=== PATIENT | female | born 1960 | race Caucasian/White ===

== ENCOUNTER 2023-10-25 13:12 | Inpatient (IN) | payer BC, SELFPAY ==
[2023-10-25] VITALS (9 sets, daily range): BP systolic 123–164; BP diastolic 61–93; BMI 33.2
--- NOTE | 2023-10-25 08:48 | ED.GENMED ---
History of Present Illness
General
Chief Complaint: Abdominal Pain
Source: patient and spouse
Exam Limitations: none
Time Seen by Provider: 10/25/23 08:29
Nursing documentation reviewed up to this point in time: agreed with
Travel History
Have you had any contact with someone who has COVID-19?: No
Do you have any symptoms of coronavirus? Fever > 100 degrees, chills, cough, shortness of breath, sore throat, loss of taste or smell, muscle aches, or headache?: No
History of Present Illness
History of Present Illness:
63-year-old female past medical history of hypertension and gallstones also recent removal of a left-sided mandibular cyst a few months ago presenting to the emergency department today with concerns of bilateral upper abdominal discomfort off and on
over the past 3 days. Seems to be worse after eating fatty foods denies associated nausea vomiting diarrhea change in bowel movements fevers. No significant chest discomfort or shortness of breath. Has had a liquid diet over the past few months
secondary to a jaw surgery that she had at [facility] the initial symptoms that started 3 days ago occurred after her first progression of diet which included meatballs was the first time she had more solid food in over a month.
Past History
Past History
ED Past Medical History: HTN
ED Past Surgical History: Gynecological
Social History
Tobacco: Non-smoker
Personal:
Living: with family
Review of Systems
Review of Systems
Allergies reviewed?: Yes
All Other Systems: ROS reviewed and negative except as documented in HPI and ROS
Phy Exam
Physical Exam
Physical Exam:
GENERAL: Alert , in no apparent distress
EYE: pupils equal and reactive
NECK: Supple, no significant adenopathy.
ENT: o/p clr, mmm.
CARDIAC: Regular rate and rhythm .
LUNGS: Clear breath sounds bilaterally, no acute respiratory distress, no wheezes/rales/rhonchi
ABDOMEN: Soft, without focal tenderness, no r/g, no cvat
NEUROLOGICAL: Alert and oriented, no focal neuro deficits
SKIN: Warm and dry, skin intact.
MUSCULOSKELETAL: No edema, well perfused.
PSYCH: Normal and appropriate interaction.
Course
Orders/Labs/Results
Orders:
Orders
10/25/23 08:45
0.9% Sodium Chloride 1000 ml [Nss] 1,000 ml IV BOLUS
Famotidine [Pepcid] 20 mg IV NOW STA
Ondansetron Injectable [Zofran] 4 mg IV NOW STA
10/25/23 08:46
Electrocardiogram (*1) Stat
Reason for Study: Abdominal Pain
EKG- Treatment ONCE
US Abdomen Complete/Upper Urgent
Comment:
Reason For Exam: upper abd pain hx of gallstones
10/25/23 09:02
Complete Blood Count/With Diff Urgent
Comprehensive Metabolic Panel Urgent
Lipase Urgent
Urinalysis Reflex To Culture Urgent
Date Specimen was Collected: 10/25/23
Time Specimen was Collected: 08:47
Abnormal Lab Results
10/25/23
09:02
WBC 11.5 H 10^3/uL
(4.8-10.8)
MPV 11.9 H fL
(7.4-10.4)
Absolute Neuts (auto) 8.7 H 10^3/uL
(1.4-6.5)
Absolute Monos (auto) 0.8 H 10^3/uL
(0.1-0.6)
Neutrophils % 75.5 H %
(42.2-75.2)
Lymphocytes % 16.0 L %
(20.5-51.1)
BUN 20 H mg/dl
(7-17)
Glucose 132 H mg/dl
(70-99)
Total Bilirubin 2.1 H mg/dl
(0.2-1.3)
AST 130 H U/L
(14-36)
ALT 177 H U/L
(0-35)
Alkaline Phosphatase 165 H U/L
(38-126)
Urine Ketones 1+ A
(Negative)
10/25/23 09:02
10/25/23 09:02
Vital Signs
Initial and Last Documented VS:
Initial Vital Signs
Temp Pulse Resp BP Pulse Ox
99 F 123 16 142/86 98
10/25/23 08:27 10/25/23 08:27 10/25/23 08:27 10/25/23 08:27 10/25/23 08:27
Last Documented Vital Signs
Temp Pulse Resp BP Pulse Ox
99 F 94 14 129/76 95
10/25/23 08:27 10/25/23 11:30 10/25/23 08:41 10/25/23 11:00 10/25/23 11:30
MDM/Problems Addressed
MDM/Problems Addressed:
63-year-old female presenting to the emergency department today with concerns of upper abdominal discomfort that has been off and on over the past few days. Seems to be worse specifically after fatty. She has been on liquid diet for over a month
and just started to include more solid food. On arrival here heart rate was elevated but improving without specific treatment to the low 100s initial heart rate in the 120s patient in sinus rhythm EKG at a normal rate sinus no arrhythmia no signs
of ischemia. Very minimal reproducible discomfort to the upper abdomen but no significant sharp pain or focal pain. Negative Thomas's. Ultrasound showing gallstones and pancreatic cyst the patient is aware of. Heart rate mildly elevated
throughout ER stay white count 11.5 does have an elevated bilirubin level as well as LFTs and alk phos plan to admit for MRCP and further assessment. Patient does have some ongoing abdominal discomfort.
*Critical Care Note
Total Time (30-74mins, 75-104mins- exclusive of procedures): Not Applicable
ED Attending Note
-
Portions of this chart may have been created with voice recognition software.� Occasional wrong word or��sound alike� substitutions may have occurred due to the inherent limitations of voice recognition software.
Discharge Plan
Departure
Patient Disposition: Admit
Date of Disposition: 10/25/23
Time of Disposition: 12:06
Admit to: Med/Surg
Admit to doctor: Sheu
Presentation/result/management discussed w/ accepting MD/DO: Hospitalist
Patient with high blood pressure during this ER visit?: No
Condition: Good
Covid-19: Not Applicable
Discharge Problem:
Upper abdominal pain
Prescriptions:
No Action
lisinopril 10 MG tablet
30 mg PO DAILY
metoprolol tartrate 25 MG tablet
25 mg PO BID
rosuvastatin [Crestor] 10 mg Tablet
10 mg PO DAILY
Referrals:
Erica Knox MD [Family Provider] -
Interventions
Interventions:
*Risk Screen - Suicide Last Done: 10/25/23 08:27
*General Assessment Last Done: 10/25/23 08:27
*Neglect/Abuse Screening Last Done: 10/25/23 08:27
ED- Fall Risk Assessment Last Done: 10/25/23 08:48
*ED COVID-19 Vaccine History Last Done: 10/25/23 08:48
BC-Nsbiof-Oxwhtbxkgy Assessment Last Done: 10/25/23 08:48
[2023-10-25] MEDS: PEPCID 20 MG IV (08:57)
[2023-10-25] MEDS: ZOFRAN 4 MG IV (08:57)
[2023-10-25] MEDS: NSS 1000 IV ×2 (08:58→16:47)
[2023-10-25 09:14] LABS: % Basophils 0.4 % (0-2); % Eosinophils 0.7 % (0-6); % Immature Granulocytes 0.2 % (0-0.5); % Monocytes 7.2 % (1.7-9.3); % Neutrophils 75.5 % (42.2-75.2); Absolute Basophils 0.1 10^3/uL (0-0.2); Absolute Eosinophils 0.1 10^3/uL (0-0.7); Absolute Lymphocytes 1.8 10^3/uL (1.2-3.4); Absolute Monocytes 0.8 10^3/uL (0.1-0.6); Absolute Neutrophils 8.7 10^3/uL (1.4-6.5); Hemoglobin 14.2 g/dL (12.0-16.0); Mean Corp Hgb Conc. 34.6 g/dL (33.0-37.0); Mean Corpuscular Hgb 29.2 pg (27.0-31.0); Mean Corpuscular Volume 84.4 fL (81.0-99.0); Mean Platelet Volume 11.9 fL (7.4-10.4); Nucleated Red Blood Cells % 0 %; Platelet Count 256 10^3/uL (130-400); Red Blood Cell Count 4.86 10^6/uL (4.20-5.40); Red Cell Dist. Width 13.3 % (11.5-14.5); White Blood Cell Count 11.5 10^3/uL (4.8-10.8)
[2023-10-25 09:32] LABS: ALT (SGPT) 177 U/L (0-35); AST (SGOT) 130 U/L (14-36); Albumin 4.6 g/dl (3.5-5.0); Alkaline Phosphatase 165 U/L (38-126); Blood Urea Nitrogen 20 mg/dl (7-17); Calcium 9.9 mg/dl (8.4-10.2); Carbon Dioxide 22 mmol/L (22-30); Chloride 104 mmol/L (98-107); Estimated Creatinine Clearance 81 ml/min; Glucose 132 mg/dl (70-99); Potassium 3.9 mmol/L (3.5-5.1); Sodium 138 mmol/L (135-145); Total Bilirubin 2.1 mg/dl (0.2-1.3); Total Protein 7.5 g/dl (6.3-8.2); eGFR > 60.00
[2023-10-25 09:48] LABS: Lipase 56 U/L (23-300)
[2023-10-25 10:45] LABS: Urine Albumin Negative (Neg - Trace); Urine Bilirubin Negative (Negative); Urine Character Clear (Clear); Urine Color Yellow; Urine Glucose Negative (Negative); Urine Ketone 1+ (Negative); Urine Leukocyte Negative (Negative); Urine Nitrite Negative (Negative); Urine Occult Blood Negative (Negative); Urine Specific Gravity 1.015 (<1.030); Urine Urobilinogen 1+ (Neg - 1+)
--- NOTE | 2023-10-25 12:49 | HPS.HSE ---
Addendum entered and electronically signed by Dorian Miles MD 10/25/23 15:06:
Abdominal pain that can be quite severe at times
Hx of benign pancreatic cyst
Pt seen independently and agree with PA note
Lungs clear
CV reg
Abd soft, tender, Thomas's point
Imp:choledocholithiasis
abn LFT's
P:GI consult
GI intervention to be considered
routine consult General Surgery requested by Dr. Villanueva
Original Note:
Family Physician
-
Family Physician: Erica Knox MD
Chief Complaint
-
Abdominal Pain
History of Present Illness
Patient is a 63 y/o female with PMH of hypertension, hyperlipidemia, gallstones, non-alcoholic fatty liver, melanoma, and impacted tooth s/p jaw surgery and cyst removal on Sep 24 who presented to the ED complaining of epigastric pain x 3 days. She
describes post-prandial upper abdominal pain and 'spasms' which she rates 6-9/10. She has been on a clear liquid/soft foods diet following jaw surgery. Patient says she experienced significant pain and spasms after eating a soft meatball on Saturday
which eventually subsided. This morning she drank a protein shake which was followed by 6/10 pain which is what brought her to the ED this morning. She denies fever, chills, sweats, nausea, vomiting, and diarrhea. Patient gets chest CT and abdominal
MRI every 6-9 months for the past 3.5 years for history of melanoma and pancreatic cyst, last done on 09/19/2023 which reveal no gallbladder wall thickening and no inflammation of the pancreas. Ultrasound of the gallbladder today revealed
cholelithiasis but no gallbladder wall thickening.
Medical History
Past Medical History
Past Medical History: Reports Other
Additional Past Medical History:
Essential Hypertension
Hyperlipidemia
Past Surgical History: Reports Other
Additional Past Surgical History:
Breast Reduction
Right Oophorectomy
Right Lower Ext Melanoma Excision
Left Jaw Surgery
Social History
Tobacco: Non-smoker
Alcohol: None
Family History
Family History: Not pertinent
Allergies / Home Medications
Allergies reflects when Allergies were last updated in [facility].
Home Medications with original date entered in [facility]
Allergy/Medication List:
Allergies
Allergy/AdvReac Type Severity Reaction Status Date / Time
moxifloxacin [From Avelox] Allergy Itching Verified 10/25/23 08:26
Home Medications
metoprolol tartrate 25 mg tablet 25 mg PO BID Blood pressure 04/13/21
chlorhexidine gluconate 0.12 % mouthwash 15 ml buccal TID 10/25/23
ibuprofen 600 mg tablet 600 mg PO Q8H PRN mild pain 10/25/23
lisinopril 30 mg tablet 30 mg PO DAILY 10/25/23
rosuvastatin 5 mg tablet 5 mg PO DAILY 10/25/23
tavaborole 5 % topical solution with applicator 1 applic topical HS apply to right big toe nail 10/25/23
Review of Systems
-
A 12 point ROS was completed and negative except as noted: Yes
Constitutional: Denies Fever or Chills
Respiratory: Denies Cough or Trouble Breathing
Cardiac: Denies Chest Pain or Palpitations
Abdomen/GI: Reports See HPI
Physical Exam
Vital Signs
Vital Signs
Temp Pulse Resp BP Pulse Ox
99 F 110 14 123/74 99
10/25/23 08:27 10/25/23 12:00 10/25/23 08:41 10/25/23 12:00 10/25/23 12:00
Physical Exam
General: Comfortable and Conversant
HEENT: Anicteric and Moist mucous membranes
Respiratory: Clear and Non Labored Respirations
Cardiac: S1/S2 and Regular Rhythm; No Murmur
GI: Soft and Tender (Mild epigastric/RUQ without rebound or guarding)
Rectal: Deferred by Provider
Musculoskeletal: No Clubbing, No Cyanosis and No Edema
Skin: Warm and Dry
Neuro: Awake, Alert, Oriented and Nonfocal/grossly intact
Laboratory Results
-
10/25/23 09:02
10/25/23 09:
Laboratory Results
Total Bilirubin 2.1 mg/dl (0.2-1.3) H 10/25/23 09:02
AST 130 U/L (14-36) H 10/25/23 09:02
ALT 177 U/L (0-35) H 10/25/23 09:
Alkaline Phosphatase 165 U/L (38-126) H 10/25/23 09:02
Lipase 56 U/L (23-300) 10/25/23 09:02
Data Reviewed
-
Lab Data: Labs Reviewed by me
Impression/Plan
-
Abdominal Pain with Elevated LFTs, suspect choledocholithiasis
-Consult GI
-Continue NPO/IVFs
-Trend LFTs
-Start empiric Zosyn
Essential Hypertension
-Continue lisinopril and metoprolol
Hyperlipidemia
-Hold statin
DVT proph: SCDs
Code Status: Full Code
--- NOTE | 2023-10-25 13:03 | EDRN ---
Gi and hospitalist currently at the pts bedside speaking with the pt and the pts
--- NOTE | 2023-10-25 13:47 | CON.GI ---
Addendum entered and electronically signed by Abraham Villanueva MD 10/25/23 15:15:
I saw and examined the patient.
The PA's note was reviewed and I agree with the note.
Comment:
Pt is a 63 year old female with h/o melanoma, pancreatic cyst (< 1 cm cysts under MRI surveillance), gallstones,�HTN, hypercholesterolemia with recent mandible cyst with drainage, drain placement, with limited diet and restricted mouth opening (DrJuanita
Calvin at [facility]) p/w abdominal pain and found to have elevated LFT. � Had RUQ/epigastric abdo pain few days ago after eating meatball.� Pain recurred this AM and came to ER. On admission noted with� bili 2.1, AST 130, alt 177, alk phos 165 and
lipase 56 with normal LFT's in June. � Pt had MRI in 09/11 stable sub-centimeter panc cyst, hepatic steatosis, cholelithiasis, no GBWT no duct dilation. 09/19/23 CT chest-no mets in chest, pulm nodule. Pt also admits to [facility] for
last month
Impression / Rec:
1. Abdo pain, elevated LFT - moderate suspicion for underlying choledocholithiasis. RUQ US here showed cholelithiasis with CBD ~4 mm. Bili is 2 with elev alk phos. Discussed MRI/MRCP vs EUS +/- ERCP today, however given that we weren't able to
communicate/obtain clearance from her oral surgeon, will opt for MRI/MRCP today.
Original Note:
Consultation
-
Date/Time Consultation Requested: 10/25/23 1230
Date/Time Consultation Performed: 10/25/23 1300
Requesting Provider: Annelise Turner PA-C
Performing Provider: WILD Anaya, Abraham Villanueva MD
Reason for Consultation: abdominal pain, increased LFT's
Medical History
Chief Complaint / HPI
Chief Complaint: abdominal pain
History of Present Illness:
Pt is a 63yo presents with hx melanoma, pancreatic cyst follow with Dr. Galvan at [facility], gallstones, HTN, hypercholesterolemia with recent mandible cyst with drainage, drain placement, with limited diet and restricted mouth opening with Dr. Simpson
at [facility]. She has had wt loss of 15lb since mid September and admits to eating mashed potatoes and meatball on Saturday with increased abdominal pain. She took clear diet then just liquids with improvement but recurrent pain after protein shake
10/24. On admission noted with bili 2.1, AST 130, alt 177, alk phos 165 and lipase 56 with normal LFT's in June.
Pt denies nausea, vomiting, diarrhea, constipation, but some slightly dark urine and light colored stools. Pt had MRI in 09/19/23 - stable sub CM panc cyst in keeping with indolent lesion on epithelial origin, hepatic steatosis,
cholelithiasis, no GBWT no duct dilation. 09/19/23 CT chest-no mets in chest, pulm nodule.
Past Medical History
Past Medical History: Cancer (melanoma), HTN, Hypercholesterolemia and Other (pancreatic cyst )
Social History
Tobacco: Non-Smoker
Alcohol: None
Drug: None
Personal:
Living: With Family
Employment: Retired
Family History
Family History: Reviewed & Not Pertinent
Allergies / Home Medications
Allergy/AdvReac Type Severity Reaction Status Date / Time
moxifloxacin [From Avelox] Allergy Itching Verified 10/25/23 08:26
Medication Instructions Recorded
metoprolol tartrate 25 mg tablet 25 mg PO BID Blood pressure 04/13/21
chlorhexidine gluconate 0.12 % 15 ml buccal TID 10/25/23
mouthwash
ibuprofen 600 mg tablet 600 mg PO Q8H PRN mild pain 10/25/23
lisinopril 30 mg tablet 30 mg PO DAILY 10/25/23
rosuvastatin 5 mg tablet 5 mg PO DAILY 10/25/23
tavaborole 5 % topical solution 1 applic topical HS apply to right 10/25/23
with applicator big toe nail
Review of Systems
-
History Source: Patient
Constitutional: Reports Weight Loss ( 15 lbs since September )
EENT: Reports No Symptoms
Respiratory: Reports No Symptoms
Cardiac: Reports No Symptoms
Abdomen/GI: Reports Abdominal Pain
: Reports Dark Urine (slightly dark )
Musculoskeletal: Reports No Symptoms
Skin: Reports No Symptoms
Neurological: Reports Weakness
Endocrine: Reports No Symptoms
Hematologic/Lymphatic: Reports No Symptoms
Vital Signs
Temp Pulse Resp BP Pulse Ox
99 F 109 14 153/84 99
10/25/23 08:27 10/25/23 13:15 10/25/23 08:41 10/25/23 13:00 10/25/23 13:15
Physical Exam
Exam
General: Well Developed, Well Nourished and No Apparent Distress
HEENT: Other (visible rubber bands in mouth b/l but able to open mouth 1/2 way)
Respiratory: Clear
Cardiac: Regular Rhythm
GI: Soft, Non Distended and Tender (mild )
Genito-urinary: No Costovertebral Tender
Musculoskeletal: No Clubbing and No Cyanosis
Skin: Warm and Dry
Neuro: Awake, Alert and AO x 3
Psych: Calm
Results
WBC 11.5 10^3/uL (4.8-10.8) H 10/25/23 09:02
Hgb 14.2 g/dL (12.0-16.0) 10/25/23 09:02
Hct 41.0 % (37.0-47.0) 10/25/23 09:02
MCV 84.4 fL (81.0-99.0) 10/25/23 09:02
Plt Count 256 10^3/uL (130-400) 10/25/23 09:02
Absolute Neuts (auto) 8.7 10^3/uL (1.4-6.5) H 10/25/23 09:02
Sodium 138 mmol/L (135-145) 10/25/23 09:02
Potassium 3.9 mmol/L (3.5-5.1) 10/25/23 09:02
Chloride 104 mmol/L (98-107) 10/25/23 09:02
Carbon Dioxide 22 mmol/L (22-30) 10/25/23 09:02
BUN 20 mg/dl (7-17) H 10/25/23 09:02
Creatinine 0.9 mg/dL (0.6-1.0) 10/25/23 09:
Calcium 9.9 mg/dl (8.4-10.2) 10/25/23 09:02
Total Bilirubin 2.1 mg/dl (0.2-1.3) H 10/25/23 09:02
AST 130 U/L (14-36) H 10/25/23 09:02
ALT 177 U/L (0-35) H 10/25/23 09:02
Alkaline Phosphatase 165 U/L (38-126) H 10/25/23 09:02
Lipase 56 U/L (23-300) 10/25/23 09:02
Diagnostic Image Results:
10/25/23 US Abdomen Complete/Upper Cholelithiasis 9 mm cystic mass in the anterior body of the pancreas CBD 4.5 mm, cholelithiasis normal liver, spleen
MRI abd 09/19/23 - stable sub CM panc cyst in keeping with indolent lesion on epithelial origin, hepatic steatosis, cholelithiasis, no GBWT no duct dilation.
09/19/23 CT chest-no mets in chest, pulm nodule
Assessment / Plan
-
Pt is a 63yo presents with hx melanoma, pancreatic cyst follow with Dr. Galvan at [facility], gallstones, HTN, hypercholesterolemia with recent mandible cyst with drainage, drain placement, with limited diet and restricted mouth opening with Dr. Simpson
at [facility]. She has had wt loss of 15lb since mid September and admits to eating mashed potatoes and meatball on Saturday with increased abdominal pain. She took clear diet then just liquids with improvement but recurrent pain after protein shake
10/24. On admission noted with bili 2.1, AST 130, alt 177, alk phos 165 and lipase 56 with normal LFT's in June. Pt had MRI in 09/19/23 - stable sub CM panc cyst in keeping with indolent lesion on epithelial origin, hepatic steatosis,
cholelithiasis, no GBWT no duct dilation. 09/19/23 CT chest-no mets in chest, pulm nodule. Pt also admits to [facility] Motrin for last month
10/25/23 US Abdomen Complete/Upper Cholelithiasis 9 mm cystic mass in the anterior body of the pancreas CBD 4.5 mm, cholelithiasis normal liver, spleen
-epigastric abdominal pain
-elevated LFT's
-recent wt loss
-recent mandible cyst with drainage and restricted mouth
-frequent Motrin use
other medical problems:
-melanoma
-hx panc cyst
-HTN
-hypercholesterolemia
PLAN:
reviewed with Dr. Villanueva and patient
concern for CBD stone vs other (PUD in differential but less likely with LFT elevation) vs other
Ultrasound as noted
trend LFT's, monitor pain
reviewed option of MRI and if stone + ERCP Saturday vs EUS +/- ERCP attempt today
pt with multiple concerned with jaw restriction with anesthesia, positioning etc
Dr. Villanueva attempted to contact oral surgery Dr. Simpson [phone] without success-- pt will cont to call MD to review prior to procedure
cont NPO
if not completing EUS today will need to order MRI
cont to follow OP with panc cyst clinic at [facility]
-
-
Thank you for consultation and allowing me to participate in the patient's care. Please call the machine long goods helper GI physician during the after hours with any questions or concerns.
--- NOTE | 2023-10-25 14:13 | EDRN ---
the pt is resting in the stretcher in the lowest position, side rails up x1, HOB elevated, call onofre within reach, no s/s of distress, no c/o abdominal pain currently, no c/o N/V/D, VS WNL, DAVID in the 's, 98% on RA, awaiting for a bed for the pt,
will continue to monitor the pt closely
--- NOTE | 2023-10-25 14:40 | EDRN ---
this RN called the receiving unit and notified them that paper report was going to be tubed up
--- NOTE | 2023-10-25 16:19 | CON.GS ---
Addendum entered and electronically signed by Pradeep Mccauley MD 10/25/23 17:20:
I saw and examined the patient independently.
The [employer]'s note was reviewed and I agree with the note, assessment and plan except where noted below.
Comment: This is a 63-year-old female with a history of ovarian cyst status post laparoscopic right nephrectomy, hypertension, pancreatic cyst under surveillance, melanoma and recently oral surgery at [facility] for mandibular cyst with impacted tooth
roughly 1 month ago. She presents to our ED with severe postprandial epigastric and right upper quadrant pain with known history of gallstones. She has had multiple attacks fairly recently that all subsided however had 1 attack today that was
particularly severe and prompted her visit to see us today. Currently however her pain has resolved. She is not tender to palpation and has only a mild leukocytosis likely secondary to hemoconcentration. She does have mildly elevated LFTs
concerning for possible choledocholithiasis versus a passed stone. The patient denies Fever, Chest Pain, Shortness Of Breath, Nausea, Vomiting, changes in urinary and bowel habits, unintentional weight loss, jaundice, icterus, acolic stools. Her
ultrasound is positive for gallstones but no stigmata of cholecystitis.
Biliary colic +/- choledocholithiasis versus less likely early acute cholecystitis.
Patient would certainly benefit from cholecystectomy however given recent oral surgery the main question is how much manipulation of the jaw is acceptable. Will reach out to Dr. Galvan for input.
Agree with GI, MRI reasonable. If negative for choledocholithiasis would likely pursue an outpatient laparoscopic cholecystectomy once cleared from OMFS.
Trend LFTs.
Reasonable to start antibiotics for now.
Patient agreeable to plan above.
General surgery will follow.
I spent roughly 60 minutes in total for the care of this patient today including direct patient care and counseling, reviewing labs, imaging, coordination of care, as well as documentation.
Original Note:
Consultation
-
Date/Time Consultation Requested: 10/25/23 [id number]
Requesting Provider: Jd
Medical History
-
Chief Complaint: epigastric and RUQ abdominal pain
History of Present Illness:
This is a 63 yo female with a h/o ovarian cyst with laparoscopic right oophorectomy, HTN, pancreatic cyst on surveillance (stable on MRI 09/19/2023), melanoma and recent oral surgery at [facility] for mandibular cyst with impacted tooth (Dr. Galvan) one
month ago who presents with recurrent post prandial epigastric and RUQ pain. She has a history of known gallstones and notes that over the past years, she has had several episodes of RUQ and epigastric pain after eating although these episodes are
usually short lived and mild. She has been on a liquid/soft diet since her recent oral surgery with jaw banded together and has lost about 15 pounds. 3 days ago, she ate a mashed up a meatball with some mashed potatoes and developed severe RUQ and
epigastric pain. She notes that the pain was more severe and longer in duration than prior episodes. The following day, she kept to clear liquids and didn't not have recurrence of pain. Today, as she was feeling better, she drank a protein shake and
notes return of symptoms. She denies nausea or vomiting. She denies bowel changes/acholic stools. She denies jaundice or scleral icterus. She does note her urine has been darker. She reports that she still feels a little tight across her epigastric
area but is nontender on exam.
Past Medical History
Past Medical History: Cancer (melanoma with excision), HTN, Hypercholesterolemia and Other (pancreatic cyst on surveillance)
Past Surgical History: Gynecological (lap right oophorectomy in her 20's)
Social History
Tobacco: Non-Smoker
Alcohol: None
Family History
Family History: Reviewed & Not Pertinent
Allergies / Home Medications
Allergy/AdvReac Type Severity Reaction Status Date / Time
moxifloxacin [From Avelox] Allergy Itching Verified 10/25/23 08:26
Medication Instructions Recorded Confirmed Type
metoprolol tartrate 25 mg tablet 25 mg PO BID Blood pressure 04/13/21 10/25/23 History
chlorhexidine gluconate 0.12 % 15 ml buccal TID 10/25/23 10/25/23 History
mouthwash
ibuprofen 600 mg tablet 600 mg PO Q8H PRN mild pain 10/25/23 10/25/23 History
lisinopril 30 mg tablet 30 mg PO DAILY 10/25/23 10/25/23 History
rosuvastatin 5 mg tablet 5 mg PO DAILY 10/25/23 10/25/23 History
tavaborole 5 % topical solution 1 applic topical HS apply to right 10/25/23 10/25/23 History
with applicator big toe nail
Review of Systems
-
History Source: Patient
All other systems: Negative unless noted
A 10 point review of systems was completed, and was negative except as per HPI.
Physical Exam
Vital Signs
Temp Pulse Resp BP Pulse Ox
99 F 100 14 153/84 96
10/25/23 08:27 10/25/23 14:00 10/25/23 08:41 10/25/23 13:00 10/25/23 14:00
10/24/23 10/25/23 10/26/23
06:59 06:59 06:59
Actual Weight 99.1 kg
Body Mass Index (BMI) 33.2
Lab Results
10/25/23 09:02
10/25/23 09:02
WBC 11.5 10^3/uL (4.8-10.8) H 10/25/23 09:02
Hgb 14.2 g/dL (12.0-16.0) 10/25/23 09:02
Hct 41.0 % (37.0-47.0) 10/25/23 09:02
Plt Count 256 10^3/uL (130-400) 10/25/23 09:02
Abs Immat Gran (auto) 0.0 10^3/uL (0-0.05) 10/25/23 09:02
Neutrophils % 75.5 % (42.2-75.2) H 10/25/23 09:02
Physical Exam
General: Well Developed, Well Nourished and No Apparent Distress
HEENT: Moist Mucous Membranes; Negative Scleral Icterus
Respiratory: Non Labored Respirations
GI: Soft, Non Tender and Non Distended
Skin: Warm and Dry
Neuro: Awake, Alert and AO x 3
Psych: Calm
Data Reviewed
-
Ultrasound: Image Personally Visualized and interpreted, Report Reviewed by me, Discussed with Physician and Discussed with Patient
Labs: Labs Reviewed by me, Discussed with Physician and Discussed with Patient
Assessment / Plan
-
This is a 63 yo female with h/o ovarian cyst with laparoscopic right oophorectomy, HTN, pancreatic cyst on surveillance (stable on MRI 09/19/2023), melanoma and recent oral surgery one month ago at [facility] for mandibular cyst with impacted tooth (
[facility]) who presents with biliary colic with recurrent post prandial epigastric and RUQ pain. She notes severe pain which started 3 days ago and resolved with dietary restrictions but returned after drinking a protein shake this morning. Pain
improved since presentation and abd non-tender on exam. Cholelithiasis on US without evidence cholecystitis. Mild leukocytosis without fevers. LFT's elevated with bilirubin of 2.1.
GI following with recommendation for MRI to evaluate for choledocholithiasis.
Trending LFT's
Would recommend nonurgent laparoscopic cholecystectomy. Ideally, would do later this admission, but may need to scheduled as an outpatient in follow up as her recent jaw surgery may be prohibitive to intubation for general anesthesia. She has placed
a call to her OMFS to discuss.
Continue clear liquids and follow for MRI findings
[2023-10-25] MEDS: TYLENOL 650 MG PO (16:42)
[2023-10-25] MEDS: ZOSYN 50 IV ×2 (16:48→22:16)
--- NOTE | 2023-10-25 17:00 | PTCARENOTE ---
1640 Pt arrived from ER via stretcher, denies acute discomfort. Alert and oriented x 3. Vs stable, pulse ox 98% on room air. Noted orders as per MD. Explain to pt allowed clear liquids,continue to monitor closely.
[2023-10-25] MEDS: LOPRESSOR 25 MG PO (20:03)
[2023-10-26] MEDS: NSS 1000 IV ×2 (01:36→13:09)
[2023-10-26] MEDS: ZOSYN 50 IV ×2 (03:13→11:02)
[2023-10-26 06:19] LABS: Hematocrit 36.5 % (37.0-47.0); Hemoglobin 12.2 g/dL (12.0-16.0); Mean Corp Hgb Conc. 33.4 g/dL (33.0-37.0); Mean Corpuscular Hgb 29.1 pg (27.0-31.0); Mean Corpuscular Volume 87.1 fL (81.0-99.0); Platelet Count 195 10^3/uL (130-400); Red Blood Cell Count 4.19 10^6/uL (4.20-5.40); Red Cell Dist. Width 13.2 % (11.5-14.5); White Blood Cell Count 5.5 10^3/uL (4.8-10.8)
[2023-10-26 06:40] LABS: ALT (SGPT) 171 U/L (0-35); AST (SGOT) 85 U/L (14-36); Albumin 3.6 g/dl (3.5-5.0); Alkaline Phosphatase 130 U/L (38-126); Blood Urea Nitrogen 9 mg/dl (7-17); Calcium 8.8 mg/dl (8.4-10.2); Carbon Dioxide 25 mmol/L (22-30); Chloride 110 mmol/L (98-107); Estimated Creatinine Clearance 81 ml/min; Glucose 120 mg/dl (70-99); Potassium 4.5 mmol/L (3.5-5.1); Sodium 139 mmol/L (135-145); Total Bilirubin 1.2 mg/dl (0.2-1.3); Total Protein 6.1 g/dl (6.3-8.2); eGFR > 60.00
[2023-10-26 07:00] VITALS: BP 146/85
[2023-10-26] MEDS: ZESTRIL 30 MG PO (11:02)
[2023-10-26] MEDS: LOPRESSOR 25 MG PO ×2 (11:02→19:32)
--- NOTE | 2023-10-26 12:45 | W.PN.GS2 ---
Addendum entered and electronically signed by Franky Talamantes MD 10/27/23 10:27:
Patient seen and examined on 10/25 with ENV[facility]ONMENT[facility] HE[facility] AND SAFETY MANAGER. Agree with assessment plan as documented below.
No complaints of abdominal pain. Tolerating clears. No fevers.
Gen: NAD
Abd: soft, NT/ND, non-peritoneal, negative Thomas's sign
-- Plan for outpatient cholecystectomy
-- MRCP without signs of choledocho
-- OK for DC from surgical perspective, outpatient follow-up with Dr. Mccauley
Original Note:
Today's Communication / Plan
-
Dispo planning
Assessment / Plan
-
63 yo female with recent jaw surgery at [facility] with OMFS who is presenting with biliary colic and rise in LFT's/WBC's. Labs normalizing today. Resolution of pain. AFVSS. Tolerating CLD. MRI with cholelithiasis without cholecystitis, probable small
stones in cystic duct but no CBD stones noted.
--GI following with us
--Ok to resume home diet of full liquids with supplements (low fat)
--Recommend lap cholecystectomy as an outpatient once cleared for OMFS for manipulation of the jaw for intubation. She has follow up appointment with Dr. Galvan on November 20
--Ok for d/c from surgical standpoint if tolerating diet without recurrence of pain
Subjective Data
-
Date of Service: October 26, 2023
Patient seen and examined at bedside with Dr. Talamantes. Denies n/v. Tolerating CLD. Denies pain.
Objective Data
-
Intake and Output
10/25/23 10/26/23 10/27/23
06:59 06:59 07:59
Intake Total 2530 / 2530
Balance 2530 / 2530
Intake:
Oral fluids 300 / 300
IV fluids (Total) 2179 / 2179
IV piggybacks 50 / 50
Other:
Number of approximated MODERATE 3
amounts of urine
Vital Signs
Temp Pulse Resp BP Pulse Ox
98.1 F 87 16 146/85 99
10/26/23 07:00 10/26/23 07:00 10/26/23 07:00 10/26/23 07:00 10/26/23 07:00
Lab Results
10/26/23 05:17
10/26/23 05:17
Calcium 8.8 mg/dl (8.4-10.2) 10/26/23 05:17
Total Bilirubin 1.2 mg/dl (0.2-1.3) 10/26/23 05:17
AST 85 U/L (14-36) H 10/26/23 05:17
ALT 171 U/L (0-35) H 10/26/23 05:17
Alkaline Phosphatase 130 U/L (38-126) H 10/26/23 05:17
Total Protein 6.1 g/dl (6.3-8.2) L 10/26/23 05:17
Albumin 3.6 g/dl (3.5-5.0) 10/26/23 05:17
Physical Exam
-
NAD
ABD soft, NT, ND
[2023-10-26] MEDS: NSS IV (13:15)
--- NOTE | 2023-10-26 13:27 | W.PN.GI.CBS2 ---
Today's Communication / Plan
-
GI s/o
Assessment / Plan
-
Pt is a 63yo presents with hx melanoma, pancreatic cyst follow with Dr. Galvan at [facility], gallstones, HTN, hypercholesterolemia with recent mandible cyst with drainage, drain placement, with limited diet and restricted mouth opening with Dr. Simpson
at [facility]. She has had wt loss of 15lb since mid September and admits to eating mashed potatoes and meatball on Saturday with increased abdominal pain. She took clear diet then just liquids with improvement but recurrent pain after protein shake
10/24. On admission noted with bili 2.1, AST 130, alt 177, alk phos 165 and lipase 56 with normal LFT's in June. Pt had MRI in 09/19/23 - stable sub CM panc cyst in keeping with indolent lesion on epithelial origin, hepatic steatosis,
cholelithiasis, no GBWT no duct dilation. 09/19/23 CT chest-no mets in chest, pulm nodule. Pt also admits to RTC Motrin for last month
Abdo pain is improved. LFT is also improved. MRCP done, which showed stones in cystic duct, normal CBD w/o choledocholithiasis. Surgical mx at this point. GI will s/o.
Total Time Spent with Patient (in minutes): 35
Subjective
Subjective
Date of Service: October 26, 2023
pain improved.
Objective
Data Reviewed
Laboratory Data:
Laboratory Results
10/26/23 05:17
10/26/23 05:17
Laboratory Results
Total Bilirubin 1.2 mg/dl (0.2-1.3) 10/26/23 05:17
AST 85 U/L (14-36) H 10/26/23 05:17
ALT 171 U/L (0-35) H 10/26/23 05:17
Alkaline Phosphatase 130 U/L (38-126) H 10/26/23 05:17
Lipase 56 U/L (23-300) 10/25/23 09:02
Vital Signs and I&O:
Vital Signs
Temp Pulse Resp BP Pulse Ox
98.1 F 87 16 146/85 99
10/26/23 07:00 10/26/23 07:00 10/26/23 07:00 10/26/23 07:00 10/26/23 07:00
I&O
10/25/23 10/26/23 10/27/23
06:59 06:59 07:59
Intake Total 2530 / 2530
Balance 2530 / 2530
[2023-10-26 15:00] VITALS: BP 111/55
--- NOTE | 2023-10-26 16:11 | CM ---
IA completed with pt's ; pt off unit.
Pt is a 63yr old female admitted with abdominal pain and elevated LFTs. Pt found with stones in cystic duct, normal CBD w/o choledocholithiasis.
At baseline, pt and live in a 2 story home with 2 steps to enter.
Pt is independent at baseline and has no hx/current use of DME/SNF/VN
PCP; Erica Knox
Pharm; Mani Khalil
PLAN; dc to home with no needs
--- NOTE | 2023-10-26 16:31 | W.PN.HOSP.TC ---
Today's Communication/Plan
-
dc IVF
prn Ativan
recheck labs in AM
if continues to improve, will dc for pt to schedule eval with Gen Surg and then schedule for cholecystectomy once jaw issue resolved
Assessment / Plan
Assessment / Plan
Abdominal Pain with Elevated LFTs, suspected choledocholithiasis
-Consult GI/Gen Surg
-now on full liquids
-Trend LFTs
Bili 2.1-->1.2
AST 130-->85
ALT 177-->171
Alk Phos 165-->130
-Started empiric Zosyn with elevated WBC, now normalized, will stop
MRCP; Cholelithiasis as well as probable small stones within the cystic duct without overt MR evidence for acute cholecystitis. If there is high clinical concern, consider further evaluation with dedicated HIDA scan.
Essential Hypertension
-Continue lisinopril and metoprolol
Mandible cyst related to unknown impacted molar, underwent drain placement and has decreased mouth opening. Plan is to allow this to heal prior to undergoing cholecystectomy
Hyperlipidemia
-Hold statin
DVT proph: SCDs
Code Status: Full Code
Anticipated Discharge: Within 24 hours
Subjective/Interval History
-
Date of Service: October 26, 2023
Most concerned that did not sleep last night and would like Ativan tonight to help her sleep
Objective Data
-
Labs:
Laboratory Results
10/26/23
05:17
WBC 5.5
Hgb 12.2
Hct 36.5 L
Plt Count 195 D
Sodium 139
Potassium 4.5
Chloride 110 H
Carbon Dioxide 25
BUN 9
Creatinine 0.9
Glucose 120 H
Calcium 8.8
Total Bilirubin 1.2
AST 85 H
ALT 171 H
Alkaline Phosphatase 130 H
Vital Signs:
Vital Signs
Temp Pulse Resp BP Pulse Ox
98.1 F 87 16 146/85 99
10/26/23 07:00 10/26/23 07:00 10/26/23 07:00 10/26/23 07:00 10/26/23 07:00
I&O
10/25/23 10/26/23 10/27/23
06:59 06:59 07:59
Intake Total 0 / 2529
Balance 0 / 0
Review of Systems
-
History Source: Patient and Physician (reviewed with Dr. Villanueva)
Constitutional: Denies Fever
Respiratory: Reports No Symptoms
Cardiac: Reports No Symptoms
Abdomen/GI: Reports Abdominal Pain (has improved)
Musculoskeletal: Reports No Symptoms
Neuro: Reports No Symptoms
Physical Exam
-
General: Well Developed, Well Nourished and No Apparent Distress
HEENT: Normocephalic and Moist Mucous Membranes
Respiratory: Clear to Auscultation; Negative Wheezes, Rales or Rhonchi
Cardiac: Regular Rhythm and S1/S2
GI: Soft, Nontender, Nondistended and Normal Bowel Sounds
Musculoskeletal: No Clubbing, No Cyanosis and No Edema
Neuro: Awake, Alert and Oriented
[2023-10-26] MEDS: ZOSYN IV (17:04)
[2023-10-26 23:49] VITALS: BP 131/75
[2023-10-27 06:15] LABS: % Basophils 0.7 % (0-2); % Immature Granulocytes 0.4 % (0-0.5); % Monocytes 9.6 % (1.7-9.3); % Neutrophils 54.3 % (42.2-75.2); Absolute Eosinophils 0.2 10^3/uL (0-0.7); Absolute Lymphocytes 1.8 10^3/uL (1.2-3.4); Absolute Monocytes 0.5 10^3/uL (0.1-0.6); Absolute Neutrophils 3.1 10^3/uL (1.4-6.5); Hematocrit 36.8 % (37.0-47.0); Hemoglobin 12.3 g/dL (12.0-16.0); Mean Corp Hgb Conc. 33.4 g/dL (33.0-37.0); Mean Corpuscular Volume 86.8 fL (81.0-99.0); Nucleated Red Blood Cells % 0 %; Platelet Count 193 10^3/uL (130-400); Red Blood Cell Count 4.24 10^6/uL (4.20-5.40); Red Cell Dist. Width 13.5 % (11.5-14.5); White Blood Cell Count 5.7 10^3/uL (4.8-10.8)
[2023-10-27 06:49] LABS: ALT (SGPT) 114 U/L (0-35); AST (SGOT) 41 U/L (14-36); Albumin 3.4 g/dl (3.5-5.0); Alkaline Phosphatase 104 U/L (38-126); Blood Urea Nitrogen 4 mg/dl (7-17); Carbon Dioxide 29 mmol/L (22-30); Chloride 108 mmol/L (98-107); Estimated Creatinine Clearance 104 ml/min; Glucose 133 mg/dl (70-99); Potassium 4.1 mmol/L (3.5-5.1); Sodium 142 mmol/L (135-145); Total Bilirubin 0.6 mg/dl (0.2-1.3); Total Protein 5.9 g/dl (6.3-8.2); eGFR > 60.00
[2023-10-27 07:00] VITALS: BP 110/73
[2023-10-27] MEDS: LOPRESSOR 25 MG PO (08:15)
[2023-10-27] MEDS: ZESTRIL 30 MG PO (08:15)
--- NOTE | 2023-10-27 10:28 | W.PN.HOSP.TC ---
Today's Communication/Plan
-
dc today
Assessment / Plan
Assessment / Plan
Abdominal Pain with Elevated LFTs, suspected choledocholithiasis
-Consult GI/Gen Surg
-now on full liquids (baseline diet because of dental issues)
-Trend LFTs
Bili 2.1-->1.2-->0.6
AST 130-->85-->41
ALT 177-->171-->114
Alk Phos 165-->130-->104
-Started empiric Zosyn with elevated WBC, now normalized, will stop and dc on oral Augmentin x 4 days, as per Dr. Talamantes
MRCP; Cholelithiasis as well as probable small stones within the cystic duct without overt MR evidence for acute cholecystitis. If there is high clinical concern, consider further evaluation with dedicated HIDA scan.
Essential Hypertension
-Continue lisinopril and metoprolol
Mandible cyst related to unknown impacted molar, underwent drain placement and has decreased mouth opening. Plan is to allow this to heal prior to undergoing cholecystectomy
Hyperlipidemia
-Hold statin
DVT proph: SCDs
Code Status: Full Code
dc now
follow up with Dr. Simpson, oral surgery at [facility] with appt scheduled November 21, will need follow up with Dr. Pradeep Mccauley once cleared by oral surgery
More than 30 minutes spent in discharge including
Final examination of the patient
Summarizing hospital stay
Instructions for continuing care to all relevant caregivers
Preparation of discharge records, prescriptions, and referral forms
Total time spent (in minutes): 45
Anticipated Discharge: Today
Subjective/Interval History
-
Date of Service: October 27, 2023
generally feels better
Objective Data
-
Labs:
Laboratory Results
10/27/23
05:27
WBC 5.7
Hgb 12.3
Hct 36.8 L
Plt Count 193
Sodium 142
Potassium 4.1
Chloride 108 H
Carbon Dioxide 29
BUN 4 L
Creatinine 0.7
Glucose 133 H
Calcium 9.0
Total Bilirubin 0.6
AST 41 H
ALT 114 H
Alkaline Phosphatase 104
Vital Signs:
Vital Signs
Temp Pulse Resp BP Pulse Ox
98.8 F 75 16 110/73 97
10/27/23 07:00 10/27/23 07:00 10/27/23 07:00 10/27/23 07:00 10/27/23 07:00
I&O
10/26/23 10/27/23 10/28/23
05:59 06:59 06:59
Intake Total
Balance
Review of Systems
-
History Source: Patient and Physician (reviewed with Dr. Villanueva)
Constitutional: Denies Fever
Respiratory: Reports No Symptoms
Cardiac: Reports No Symptoms
Abdomen/GI: Reports Abdominal Pain (resolved)
Musculoskeletal: Reports No Symptoms
Neuro: Reports No Symptoms
Physical Exam
-
General: Well Developed, Well Nourished and No Apparent Distress
HEENT: Normocephalic and Moist Mucous Membranes
Respiratory: Clear to Auscultation; Negative Wheezes, Rales or Rhonchi
Cardiac: Regular Rhythm and S1/S2
GI: Soft, Nontender, Nondistended and Normal Bowel Sounds
Musculoskeletal: No Clubbing, No Cyanosis and No Edema
Neuro: Awake, Alert and Oriented
[2023-10-27 11:55] VITALS: BP 118/74
--- NOTE | 2023-10-27 14:44 | CM ---
Pt for dc. No dc needs were identified and transport will be provided by .
--- NOTE | 2023-10-27 15:10 | W.DS.TRANS ---
DC Summary - [employer]
-
Discharge Instructions:
Discharge Diagnosis/Procedures choledocholithiasis
Diet Low Fat,Supplements
Activity No strenuous activity
Driving Restrictions Not until seen by your Dr
Blood Work CBC, CMP in 1 week
Instructions:
Stand-Alone Forms:
Changes to Home Medications: Yes
Discharge Medications:
DC Medications w/original date entered in [employer]
metoprolol tartrate 25 mg tablet 25 mg PO BID Blood pressure 04/13/21
chlorhexidine gluconate 0.12 % mouthwash 15 ml buccal TID 10/25/23
ibuprofen 600 mg tablet 600 mg PO Q8H PRN mild pain 10/25/23
lisinopril 30 mg tablet 30 mg PO DAILY 10/25/23
tavaborole 5 % topical solution with applicator 1 applic topical HS apply to right big toe nail 10/25/23
amoxicillin 875 mg-potassium clavulanate 125 mg tablet 1 tab PO BID #8 tabs 10/27/23
Home Medication Changes
short course of Augmentin
Crestor on hold pending normalization of LFT's
Pending Results: No
== END 2023-10-27 17:40 | disposition home or self-care (01) | DRG 446 ==
LOC: 4 WEST ACU 13:12
PROVIDERS: Physician Assistant; Physician Assistant Medical; ADMITTING PHYSICIAN Internal Medicine; CONSULT PHYSICIAN Internal Medicine Gastroenterology; CONSULT PHYSICIAN Surgery; EMERGENCY PHYSICIAN Emergency Medicine; FAMILY PHYSICIAN Family Medicine
DX: K80.70 Calculus of gallbladder and bile duct without cholecystitis without obstruction (principal); I10 Essential (primary) hypertension; E78.00 Pure hypercholesterolemia, unspecified
CPT/HCPCS: 74183; 76700; 80053; 81003; 83690; 85025; 85027; 93005; 96361; 96374; 96375; 99285; A9575

== ENCOUNTER 2023-10-31 12:53 | Emergency (ER) | payer BC, SELFPAY ==
[2023-10-31 12:55] VITALS: BP 173/110
[2023-10-31 13:05] LABS: % Basophils 0.8 % (0-2); % Eosinophils 1.6 % (0-6); % Immature Granulocytes 0.3 % (0-0.5); % Lymphocytes 29.2 % (20.5-51.1); % Neutrophils 60.1 % (42.2-75.2); Absolute Basophils 0.1 10^3/uL (0-0.2); Absolute Eosinophils 0.1 10^3/uL (0-0.7); Absolute Lymphocytes 2.2 10^3/uL (1.2-3.4); Absolute Monocytes 0.6 10^3/uL (0.1-0.6); Absolute Neutrophils 4.5 10^3/uL (1.4-6.5); Hematocrit 41.3 % (37.0-47.0); Hemoglobin 14.1 g/dL (12.0-16.0); Mean Corp Hgb Conc. 34.1 g/dL (33.0-37.0); Mean Corpuscular Hgb 28.9 pg (27.0-31.0); Mean Corpuscular Volume 84.6 fL (81.0-99.0); Mean Platelet Volume 11.4 fL (7.4-10.4); Nucleated Red Blood Cells % 0 %; Platelet Count 244 10^3/uL (130-400); Red Blood Cell Count 4.88 10^6/uL (4.20-5.40); Red Cell Dist. Width 13.3 % (11.5-14.5); White Blood Cell Count 7.4 10^3/uL (4.8-10.8)
[2023-10-31 13:35] LABS: ALT (SGPT) 68 U/L (0-35); AST (SGOT) 37 U/L (14-36); Albumin 4.6 g/dl (3.5-5.0); Alkaline Phosphatase 108 U/L (38-126); Blood Urea Nitrogen 9 mg/dl (7-17); Calcium 9.7 mg/dl (8.4-10.2); Carbon Dioxide 24 mmol/L (22-30); Chloride 104 mmol/L (98-107); Glucose 105 mg/dl (70-99); Lipase 38 U/L (23-300); Potassium 4.2 mmol/L (3.5-5.1); Sodium 137 mmol/L (135-145); Total Protein 7.8 g/dl (6.3-8.2); eGFR > 60.00
--- NOTE | 2023-10-31 13:52 | ED.GENMED ---
History of Present Illness
General
Chief Complaint: Abdominal Pain
Source: patient
Exam Limitations: none
Time Seen by Provider: 10/31/23 13:27
Nursing documentation reviewed up to this point in time: agreed with
Travel History
Have you had any contact with someone who has COVID-19?: No
Do you have any symptoms of coronavirus? Fever > 100 degrees, chills, cough, shortness of breath, sore throat, loss of taste or smell, muscle aches, or headache?: No
History of Present Illness
History of Present Illness:
Patient is a 63-year-old female with history hypertension, known gallstones presenting for evaluation of persistent right upper back/flank pain. Patient was discharged from hospital 4 days ago with biliary colic. She has had persistent right upper
back pain which she describes as a burning sensation. This pain is exacerbated by movement/twisting motion. She denies any pleuritic or exertional component to pain. She denies any fever, chills, urinary symptoms, nausea, vomiting. She denies
any chest pain or shortness of breath. Patient has tried taking Advil with very little improvement. She is concerned that the pain is due to progressing gallbladder disease.
Of note�patient recently had jaw surgery and has a drain in place. They are holding off on cholecystectomy for a month to avoid manipulate jaw during intubation.
She has a follow-up scheduled with her general surgeon next Saturday.
Past History
Past History
ED Past Medical History: HTN
ED Past Surgical History: Gynecological
Social History
Tobacco: Non-smoker
Personal:
Living: with family
Phy Exam
Physical Exam
Physical Exam:
General: In no apparent distress, non-toxic
Vitals: Vital signs stable, afebrile
HEENT: Atraumatic, normocephalic; pupils equal round reactive light bilaterally protecting airway
Neck: appears supple, no JVD
CV: Regular rate rhythm, heart sounds normal no evidence of cyanosis
Resp: No evidence of respiratory distress, lungs clear bilaterally
Abd: Soft, nontender in all 4 quadrants without rebound or guarding, negative Thomas sign, non-distended; no CVA tenderness
Back: No reproducible tenderness in right upper back, no evidence of bruising or rash right upper back
Extremities: No deformities, no evidence of cyanosis or edema
Neuro: alert and oriented to person place time, grossly intact
Psych: Normal affect
Skin: Intact, no rashes or ecchymoses
Course
Orders/Labs/Results
Orders:
Orders
10/31/23 13:00
Complete Blood Count/With Diff Urgent
Comprehensive Metabolic Panel Urgent
Lipase Urgent
10/31/23 14:18
Urinalysis Reflex To Culture Urgent
Date Specimen was Collected: 10/31/23
Time Specimen was Collected: 14:13
Urine Microscopic Reflex Cult Urgent
Abnormal Lab Results
10/31/23 10/31/23
13:00 14:18
MPV 11.4 H fL
(7.4-10.4)
Glucose 105 H mg/dl
(70-99)
AST 37 H U/L
(14-36)
ALT 68 H U/L
(0-35)
Urine Ketones 1+ A
(Negative)
Urine Bilirubin 1+ A
(Negative)
Leukocyte Esterase Rfl Trace A
(Negative)
Urine Bacteria (Reflex) Few A
(Negative)
10/31/23 13:00
10/31/23 13:00
Vital Signs
Initial and Last Documented VS:
Initial Vital Signs
Temp Pulse Resp BP Pulse Ox
98.8 F 79 18 173/110 99
10/31/23 12:55 10/31/23 12:55 10/31/23 12:55 10/31/23 12:55 10/31/23 12:55
Last Documented Vital Signs
Temp Pulse Resp BP Pulse Ox
98.8 F 74 18 128/71 98
10/31/23 12:55 10/31/23 15:52 10/31/23 15:52 10/31/23 15:52 10/31/23 15:52
MDM/Problems Addressed
Differential Diagnosis Includes:
Muscular strain, cholelithiasis, biliary colic, cholecystitis, pancreatitis, herpes zoster, kidney stone, pyelonephritis,
MDM/Problems Addressed:
Patient is 63-year-old female with known cholelithiasis presenting for evaluation of persistent right upper back pain. Recently discharged from hospital with biliary colic with scheduled cholecystectomy in early November. Patient reports burning
sensation in right upper back made worse with movement/twisting motions. No pleuritic or exertional component. She has no chest pain, shortness of breath, fever, urinary symptoms. Patient is hypertensive on arrival, otherwise vital signs stable.
She is not tachycardic, not hypoxic. Physical exam as document above. She is in no apparent distress. Abdomen is soft and nontender in all 4 quadrants. Negative Thomas sign. She has no CVA tenderness. No rashes or bruising visualized on back.
Given known Selam lithiasis in setting of persistent right upper back pain�will check basic labs, lipase, urine. Will reassess.
CBC shows no clinically significant abnormalities. No leukocytosis noted. CMP shows mild transaminitis which when compared to prior labs are significantly decreased from hospital stay. Bilirubin and alkaline phosphate are within normal range.
Urinalysis shows no findings consistent with urinary tract infection or kidney stone.
Given patient is afebrile, without leukocytosis, or without any significant elevation in liver enzymes�will not repeat ultrasound at this point.
Patient has no pleuritic or exertional component with no shortness of breath�doubt PE at this point.
Given nature of pain and exacerbation with movement�suspect this is likely musculoskeletal in origin. Will discharge patient with close return precautions, NSAIDS/Tylenol/Flexeril as needed for discomfort. Patient will keep appointment for next
Saturday with general surgeon for follow-up. Patient comfortable this plan. All questions answered.
Chronic conditions affecting care:
Cholelithiasis
Acute Exacerbation and/or Progression of Chronic Illness:
N/A
*Pulse Oximetry
Patient hypoxic: no
*Electrical Design Technician Interpretation
Rate: Electrical Design Technician- N/A
*Critical Care Note
Total Time (30-74mins, 75-104mins- exclusive of procedures): Not Applicable
Data Reviewed
Review of Other/Old Records Reveals: Labs, Records, Progress Notes and Discharge Summary
Source: previous hospital records
Further Testing Considered But Not Given:
Abdominal ultrasound�given patient is afebrile with normal white blood cell count and no significant elevation in LFTs do not believe information of useful
ED Attending Note
-
Portions of this chart may have been created with voice recognition software.� Occasional wrong word or��sound alike� substitutions may have occurred due to the inherent limitations of voice recognition software.
Discharge Plan
Departure
Patient Disposition: Home (Routine Discharge)
Date of Disposition: 10/31/23
Time of Disposition: 15:47
Patient with high blood pressure during this ER visit?: Yes
Condition: Good
Discharge Problem:
Back pain
Instructions: Back Pain, BLOOD PRESSURE
Prescriptions:
New
cyclobenzaprine 5 mg tablet
5 mg PO TID PRN (Reason: muscle spasm) Qty: 10 0RF
No Action
metoprolol tartrate 25 MG tablet
25 mg PO BID
lisinopril 30 mg Tablet
30 mg PO DAILY
ibuprofen 600 mg Tablet
600 mg PO Q8H PRN (Reason: mild pain)
chlorhexidine gluconate 0.12 % Mouthwash
15 ml BUCCAL TID
tavaborole 5 % Solution With Applicator
1 applic TOPICAL HS
amoxicillin-pot clavulanate 875-125 mg tablet
1 tab PO BID Qty: 8 0RF
Referrals:
Pradeep Mccauley MD [Active] - Keep scheduled appt
Tab Cary MD [Family Provider] -
Activity Restrictions/Additional Instructions:
- Return to the emergency department with any high fevers, severe back pain, severe abdominal pain, intractable nausea/vomiting, chest pain, shortness of breath, worsening in current symptoms, or any other concerns
-You can take Tylenol/Motrin as needed for discomfort. A prescription has been sent to your pharmacy for a muscle relaxer. You can take this every 8 hours as needed for muscle spasm. This may cause drowsiness.
-You can try warm compress/heating pad as needed for discomfort
-As discussed�you should keep your appointment to follow-up with a general surgeon, Dr. Jett next Saturday
Interventions
Interventions:
*Risk Screen - Suicide Last Done: 10/31/23 12:55
*General Assessment Last Done: 10/31/23 12:55
*Neglect/Abuse Screening Last Done: 10/31/23 12:55
ED- Fall Risk Assessment Last Done: 10/31/23 16:23
*ED COVID-19 Vaccine History Last Done: 10/31/23 12:55
*Nursing Disposition Last Done: 10/31/23 16:23
FK-Rjvlmr-Nfcuangtnn Assessment Last Done: 10/31/23 16:21
Discharge Date and Time
Discharge Date/Time: 10/31/23 16:23
[2023-10-31 14:33] LABS: Urine Albumin Trace (Neg - Trace); Urine Bilirubin 1+ (Negative); Urine Character Clear (Clear); Urine Color Amber; Urine Glucose Negative (Negative); Urine Ketone 1+ (Negative); Urine Leukocyte Trace (Negative); Urine Nitrite Negative (Negative); Urine Occult Blood Negative (Negative); Urine Urobilinogen 1+ (Neg - 1+)
[2023-10-31 14:42] LABS: Urine Bacteria Few (Negative); Urine Mucus Few; Urine Red Blood Cell 0-2 /HPF (0-2); Urine Squamous Cell 0-2 /LPF (Few); Urine White Cell 0-2 /HPF (0-5)
[2023-10-31 15:52] VITALS: BP 128/71
== END 2023-10-31 16:23 | disposition home or self-care (01) ==
LOC: EMR 12:53
PROVIDERS: Emergency Medicine; Physician Assistant; EMERGENCY PHYSICIAN Emergency Medicine; FAMILY PHYSICIAN Pain Medicine Interventional Pain Medicine
DX: M54.9 Dorsalgia, unspecified (principal); I10 Essential (primary) hypertension
CPT/HCPCS: 99283; 80053; 81003; 81015; 83690; 85025

== ENCOUNTER 2024-01-07 06:16 | Day surgery (SDC) | payer BC, SELFPAY ==
--- NOTE | 2024-01-01 10:58 | PTCARENOTE ---
Pt requesting to speak to anesthesia re: recent benign mandibular cyst removal on 10/01/2023; Pt states d/t the recent sx- the jaw bone is thin and prone to pathological fx. Pt states has a 'small hole' from the drain that must be irrigated. RN
notified Tanya Judd asking to contact pt before sx.
--- NOTE | 2024-01-01 15:21 | PTCARENOTE ---
Patients 3 EKG abnormal- reviewed by Dr. Araujo, no additional interventions required
[2024-01-07] VITALS (18 sets, daily range): BP systolic 90–143; BP diastolic 45–81; BMI 34.4
[2024-01-07] MEDS: EMEND 40 MG PO (09:01)
[2024-01-07] MEDS: TYLENOL 1000 MG PO (09:01)
[2024-01-07] MEDS: NORMOSOL-R 1000 IV ×2 (09:03→15:10)
--- NOTE | 2024-01-07 12:11 | W.SUR.PREOP ---
Pre-Operative Surgical Note
-
I have examined this patient prior to the performance of the scheduled procedure.
The patient's condition is unchanged from the time of the current History and
Physical and the patient is able to undergo the scheduled procedure.
--- NOTE | 2024-01-07 12:11 | W.IMMPOSTOP ---
Surgical Immed Post Op Note
-
Primary Surgeon: Pradeep Mccauley MD
Assisting Surgeon: None
Pre-op Diagnosis: Biliary colic
Post-op Diagnosis: Biliary colic, choledocholithiasis
Procedure Performed:
1. Laparoscopic cholecystectomy with intraoperative cholangiogram
2. Laparoscopic trans-cystic common bile duct exploration
Anesthesia Type: General
Specimen / Cultures:
1. Gallbladder and contents
Estimated Blood Loss: 11 cc
Complications: None
Operative Findings: Fairly normal-appearing gallbladder with omental adhesions to the anterior surface of the gallbladder. The gallbladder also appeared somewhat distorted and somewhat volvulized the proximal one third of the gallbladder. A fairly
large cystic artery was identified anterior to the cystic duct and a critical view of safety was obtained prior to ligation of the posterior and anterior cystic duct arteries. A ductotomy was made and a cholangiogram was performed which
demonstrated a 3-4 mm, nonobstructing filling defect in the distal common bile duct consistent with a gallstone. We attempted a laparoscopic Levy cystic common bile duct expiration passing an 035 Glidewire through the cholangiocatheter but were
unable to advance it past the tortuous spiral valves of the Heister. The LTCBDE was aborted and the cystic duct stump was ligated with a 5 mm titanium clip followed by a 0 PDS Endoloop. There was no spillage of bile or stones during the procedure.
POST OP PLAN:
Imaging: Possible MRCP in the a.m. pending LFTs and GI recommendations
Labs: CBC and CMP in a.m.
Diet: Mechanical soft diet tonight, n.p.o. at midnight.
Analgesia: Tylenol 650mg q6 Gricelda, June 5mg q6 PRN, Dilaudid 0.5mg q2h PRN
Neuro/vascular checks: q4h
AC/AP: Hold Therapeutic AC, Ok for DVT PPx
Activity: Ad Imelda
Wound/Incisions/Drains: Routine
Abx: None
Dispo: RNF
--- NOTE | 2024-01-07 12:25 | OR.RPT ---
Operative Report
Operative Report
Patient Name: Jessica Thompson
: 1960
Date of Operation: 01/07/2024
Preoperative Diagnosis: Biliary colic
Postoperative Diagnosis: Biliary colic, choledocholithiasis
Procedure(s):
Laparoscopic Cholecystectomy with Cholangiogram
Laparoscopic transcystic common bile duct exploration
Surgeon(s):
Dr. Mccauley
Homicide Investigator(s):
DARIUSZ Sandoval
Anesthesia: General
Estimated Blood Loss: 11 cc
Urine Output: None
Drains/Lines/Implants: None
Specimens:
1. Gallbladder and contents
HPI/Surgical Indications:
This is a 63-year-old female with a recent surgery for a left mandibular cyst who presented initially to our ED and subsequently my office for intermittent postprandial right upper quadrant pain. Exam, labs and imaging are consistent with
symptomatic cholelithiasis. Risks/Benefits/Alternatives were discussed at length, and the patient agreed to proceed with surgery.
Operative Findings: Fairly abnormal-appearing gallbladder with omental adhesions to the anterior surface of the gallbladder with the fundus distorted and somewhat volvulized along the liver edge. A fairly large cystic artery was identified anterior
to the cystic duct and a critical view of safety was obtained prior to ligation of the posterior and anterior cystic duct arteries. A ductotomy was made and a cholangiogram was performed which demonstrated a 3-4 mm, nonobstructing filling defect in
the distal common bile duct consistent with a gallstone. There was another additional filling defect in the cystic duct but unclear if this was artifact. The remainder of the gallbladder anatomy was normal. We attempted a laparoscopic Levy cystic
common bile duct expiration passing an 035 Glidewire through the cholangiocatheter but were unable to advance it past the tortuous spiral valves of the Heister. The LTCBDE was aborted and the cystic duct stump was ligated with a 5 mm titanium clip
followed by a 0 PDS Endoloop. There was no spillage of bile or stones during the procedure.
Procedure Description:
The patient was brought to the Operating Room and placed in the supine position. IV antibiotics were infused and sequential compression devices were confirmed to be on. Following uneventful induction of general endotracheal anesthesia, an
orogastric tube was placed. The abdomen was prepped and draped in the usual sterile fashion. The abdomen was entered using an infraumbilical Veress technique which required 1 pass followed by a 12 mm trocar. Pneumoperitoneum to 15 mmHg pressure
was obtained without difficulty and we confirmed that no injury had occurred during our entry. The patient was positioned in reverse trendelenberg and rotated with the right side up slightly. Three (3) 5mm trocars were then placed along the right
subcostal margin. On immediate inspection it appeared that the fundus of the gallbladder was somewhat volvulized, twisting on itself and laying somewhat in a horizontal position over the edge of the liver. There is also some omental adhesions from
the transverse colon over the anterior surface of the gallbladder. We began by lysing these adhesions with electrocautery to expose the infundibulum. A locking grasping forceps was placed on the body of the gallbladder where it was then retracted
cephalad and to the right. Using appropriate grasping instruments, the peritoneum overlying the triangle of Calot was incised. The cystic duct/gallbladder junction was identified, and dissected circumferentially. The cystic artery was identified
anterior laterally and was dissected circumferentially. There was also a diminutive posterior cystic artery that was identified and dissected free. A critical view was obtained. The cystic arteries were clipped with 5 mm titanium clips and divided.
A clip was then placed on the cystic duct/gallbladder junction and an intraoperative cholangiogram performed using fluoroscopy. Overall biliary anatomy was normal, and there was good flow of contrast into the duodenum however there was a 3 to 4 mm
defect in the distal common bile duct which was noted to be about 8 mm. There was also a possible 1 mm defect in the cystic duct but it was thought that this was most likely artifact. 1 mg of glucagon was administered and we allowed 2 minutes of
time to pass before reshooting cholangiogram which redemonstrated the distal common bile duct defect. At this point we obtained a 0.035 soft tip J Glidewire which we passed under fluoroscopy via the cholangiocatheter however we were unable to
advance it through the very tortuous spiral valves of Heister. At this point we elected to abort our laparoscopic transcystic common bile duct exploration. The catheter and wire were removed and the duct was ligated with a 5 mm titanium clip and
divided. The stump was then reinforced with a 0 PDS Endoloop. The remaining soft tissue attachments of the gallbladder to the liver bed were then divided using electrocautery. There was no spillage of bile or stones. The gallbladder bed was
inspected and excellent hemostasis was obtained. The gallbladder was extracted through the 12 mm trocar site using an endocatch bag. The abdomen was again irrigated and excellent hemostasis was assured. All remaining trocars were then removed and
the pneumoperitoneum was evacuated. The 12 mm trocar site was closed using a figure of 8 of 0 PDS. All trocar sites were closed at the skin level using 4-0 Monocryl followed by Dermabond. Overall, the patient tolerated the procedure well and was
taken to the Recovery Room postoperatively in stable condition.
I was the attending physician and performed the procedure with the assistance of the JOURNEYMAN PIPE FITTER above. I was present for all portions of the case except for skin closure.
Pradeep Mccauley MD
[2024-01-07] MEDS: DILAUDID 0.5 MG IV (12:39)
--- NOTE | 2024-01-07 14:03 | PTCARENOTE ---
awaiting room assignment
--- NOTE | 2024-01-07 14:30 | CON.GI ---
Addendum entered and electronically signed by Lidia Delgado MD 01/07/24 17:23:
I saw and examined the patient.
The STRUCTURAL TECHNICIAN or PA's note was reviewed and I agree with the note.
Comment: 63-year-old female with history of biliary colic for several years with intermittent abdominal pain, admitted to [facility] in October with significant pain related to gallstones, had to hold off on surgery as she had jaw surgery at
that time and had elective laparoscopic cholecystectomy today and intraoperative cholangiogram showing 3 to 4 mm filling defect distal CBD suggesting stone and GI consult was called in for choledocholithiasis requiring ERCP. She also has history of
pancreatic cysts noted on MRI, followed up Dr. Galvan at [facility], next MRI due in June 2024. No history of pancreatitis. Reviewing labs from October 2023, elevated transaminases with normal bilirubin, alkaline phosphatase
transiently elevated. She follows up with Dr. Watson at [facility] for routine colonoscopies, last colonoscopy 3 to 4 years ago, colon polyp removed and was asked to come back in 5 years. Otherwise no GI complaints at this time. Some postprandial
pain.
-Choledocholithiasis noted on intraoperative cholangiogram status post laparoscopic cholecystectomy.
History of biliary colic for many years, no episodes of pancreatitis.
N.p.o. past midnight.
Plan for ERCP/EUS tomorrow with Dr. Villanueva.
Follow labs in AM.
Original Note:
Consultation
-
Date/Time Consultation Requested: 01/07/24 1330
Date/Time Consultation Performed: 01/07/24 1430
Requesting Provider: Dr. Mccauley
Performing Provider: Dr. Delgado/WILD Marcum
Reason for Consultation: CBD stone
Medical History
Chief Complaint / HPI
Chief Complaint: abdominal pain
History of Present Illness:
63yo female with PMH of melanoma, pancreatic cyst followed with Dr. Galvan at [facility], gallstones, HTN, hypercholesterolemia with recent mandible cyst with drainage, drain placement, with with Dr. Simpson at [facility]. She was here in October 2023 with
abdominal pain and had MRCP which showed stones in cystic duct, normal CBD without CBD stone. Patient came in for elective cholecystectomy as it was postponed secondary to patients recent jaw surgery at the time. The patient had laparoscopic
cholecystectomy with cholangiogram with transcystic common bile duct exploration today with Dr. Mccauley that demonstrated a 3-4 mm non obstructing filing defect in the distal common bile duct. We are asked to evaluate for the same for ERCP
evaluation. The patient is feeling well post laparoscopic cholecystectomy. She has mild incisional tenderness postoperatively that is to be expected. Prior to this she was tolerating a very low-fat diet. Without any biliary colic symptoms. She
denies any aspirin, ibuprofen, Motrin or Aleve. He follows up with Dr. Watson for GI and is up-to-date on her routine gastrointestinal screenings. She denies any fevers, chills, nausea, vomiting, melena, hematochezia, dysphagia or odynophagia.
She has no early satiety. She did lose approximately 25 pounds after having her jaw wired shut and following a very low-fat diet.
Past Medical History
Past Medical History: Cancer (melanoma), HTN, Hypercholesterolemia and Other (pancreatic cyst, gallstones)
Past Surgical History: Cholecystectomy and Other (breast reduction, right oopherctomy, D&C, excision left mandibular cyst.)
Social History
Tobacco: Non-Smoker
Alcohol: None
Drug: None
Personal:
Living: With Family
Employment: Retired
Family History
Family History: Reviewed & Not Pertinent
Allergies / Home Medications
Allergy/AdvReac Type Severity Reaction Status Date / Time
moxifloxacin [From Avelox] Allergy Itching Verified 01/07/24 08:50
oxycodone Allergy Itching Verified 01/07/24 08:50
�Medication �Instructions �Recorded
metoprolol tartrate 25 mg tablet 25 mg PO BID Blood pressure 04/13/21
lisinopril 30 mg tablet 30 mg PO DAILY 10/25/23
Review of Systems
-
All other systems: A 12 pt ROS was Negative except as stated above in HPI
Vital Signs
Temp Pulse Resp BP Pulse Ox
97.8 F 68 11 124/68 96
01/07/24 14:00 01/07/24 14:00 01/07/24 14:00 01/07/24 14:00 01/07/24 14:00
Physical Exam
Exam
General: No Apparent Distress
HEENT: Normocephalic and Anicteric
Respiratory: Clear (anterior)
Cardiac: Regular Rhythm
GI: Soft, Non Distended, Normal Bowel Sounds and Tender (mild tenderness (expected post op))
Musculoskeletal: No Edema
Skin: Warm and Dry
Neuro: AO x 3
Psych: Calm
Results
Diagnostic Image Results:
Intraop Cholangiogram:
IMPRESSION: Distal common bile duct calculus is present, which persists on all of the cine operative cholangiogram sequences.
There is spill of contrast into the duodenum.
Prior GI Procedures:
EGD:
Colonoscopy: Per patient with Dr. Watson. Colonoscopy 3 years ago. Benign polyp. Told repeat colonoscopy in 5 years
Assessment / Plan
-
63yo female with PMH of melanoma, pancreatic cyst followed with Dr. Galvan at [facility], gallstones, HTN, hypercholesterolemia with recent mandible cyst with drainage, drain placement, with with Dr. Simpson at [facility]. She was here in October 2023 with
abdominal pain and had MRCP which showed stones in cystic duct, normal CBD without CBD stone. Patient came in for elective cholecystectomy as it was postponed secondary to patients recent jaw surgery at the time. The patient had laparoscopic
cholecystectomy with cholangiogram with transcystic common bile duct exploration today with Dr. Mccauley that demonstrated a 3-4 mm non obstructing filing defect in the distal common bile duct. We are asked to evaluate for the same for ERCP
evaluation. Cholangiogram films reviewed with Dr. Villanueva. Cholangiogram showed distal CBD present. There is contrast that goes into the duodenum.
Impression:
Choledocholithiasis
s/p Lap CCY 01/07/24
Plan:
-NPO except po meds in am
-IVF per Attending
-ERCP/EUS planned for 01/08/[address] Villanueva
-CBC, CMP in am
-Further recommendations to be forthcoming.
Data Reviewed
-
Radiology: Report Reviewed by me
Old Records: Reviewed
-
-
Thank you for consultation and allowing me to participate in the patient's care. Please call the paving contractor GI physician during the after hours with any questions or concerns.
[2024-01-07] MEDS: TORADOL 10 MG IV ×2 (15:13→21:02)
[2024-01-07] MEDS: TYLENOL PO ×3 (16:14→21:08)
--- NOTE | 2024-01-07 18:05 | PTCARENOTE ---
Pt received from the PACU via bed. Transport was w/o incident. Pt is AAOx3, Pt report mild incisional pain and denies nausea. Vss, Pt is afebrile. Pt with 4 Lap sites well approximated w/ surgical glue, no drainage noted. Pt instructed on plan of
care. Pt verbalized understanding of instructions. Call onofre within reach.
--- NOTE | 2024-01-07 23:27 | W.PN.UPDATE ---
Update Note
Progress Note Update
Patient seen and examined this evening. Patient is doing well, some expected right upper quadrant pain but otherwise tolerating a diet. Reviewed operative findings.
She is refusing subcu heparin which I think is reasonable as long as she is mobile and keeps her SCDs on.
Appreciate GI assistance and plan for ERCP tomorrow.
Patient is most concerned with potential complications with the jaw surgery but I reassured her we will take all available precautions.
[2024-01-07] MEDS: TYLENOL 650 MG PO (23:39)
[2024-01-08] VITALS (12 sets, daily range): BP systolic 122–148; BP diastolic 53–89
[2024-01-08] MEDS: TORADOL 10 MG IV ×2 (03:04→21:17)
[2024-01-08] MEDS: TYLENOL PO ×5 (03:05→15:20)
[2024-01-08 05:09] LABS: Hematocrit 37.5 % (37.0-47.0); Hemoglobin 12.6 g/dL (12.0-16.0); Mean Corp Hgb Conc. 33.6 g/dL (33.0-37.0); Mean Corpuscular Hgb 29.2 pg (27.0-31.0); Mean Platelet Volume 11.9 fL (7.4-10.4); Platelet Count 226 10^3/uL (130-400); Red Blood Cell Count 4.31 10^6/uL (4.20-5.40); Red Cell Dist. Width 13.6 % (11.5-14.5); White Blood Cell Count 13.4 10^3/uL (4.8-10.8)
[2024-01-08 05:38] LABS: ALT (SGPT) 35 U/L (0-35); AST (SGOT) 39 U/L (14-36); Albumin 3.7 g/dl (3.5-5.0); Alkaline Phosphatase 69 U/L (38-126); Blood Urea Nitrogen 18 mg/dl (7-17); Calcium 9.3 mg/dl (8.4-10.2); Carbon Dioxide 24 mmol/L (22-30); Chloride 106 mmol/L (98-107); Estimated Creatinine Clearance 84 ml/min; Glucose 128 mg/dl (70-99); Potassium 4.4 mmol/L (3.5-5.1); Sodium 140 mmol/L (135-145); Total Bilirubin 0.6 mg/dl (0.2-1.3); Total Protein 6.3 g/dl (6.3-8.2); eGFR > 60.00
--- NOTE | 2024-01-08 08:01 | W.PN.GS2 ---
Today's Communication / Plan
-
ERCP
Assessment / Plan
-
63F POD1 s/p lap robina, with choledocholithiasis on IOC
Plan:
For ERCP with GI today
NPO, OK for diet post-procedure
PRN pain meds/anti-emetics
SCDs, SQH for DVT ppx (pt refusing SQH)
Subjective Data
-
Date of Service: January 08, 2024
AFVSS, pain controlled, denies n/v
Objective Data
-
Intake and Output
01/07/24 01/08/24 01/09/24
06:59 06:59 06:59
Intake Total 580 / 580
Balance 580 / 580
Intake:
Oral fluids 480 / 480
IV fluids (Total) 100 / 100
normosol 100 / 100
Other:
Number of approximated MODERATE 2
amounts of urine
Number of approximated LARGE 1
amounts of urine
Vital Signs
Temp Pulse Resp BP Pulse Ox
98.0 F 85 18 128/80 96
01/08/24 03:15 01/08/24 03:15 01/08/24 03:15 01/08/24 03:15 01/08/24 03:15
Lab Results
01/08/24 04:34
01/08/24 04:34
Calcium 9.3 mg/dl (8.4-10.2) 01/08/24 04:34
Total Bilirubin 0.6 mg/dl (0.2-1.3) 01/08/24 04:34
AST 39 U/L (14-36) H 01/08/24 04:34
ALT 35 U/L (0-35) 01/08/24 04:34
Alkaline Phosphatase 69 U/L (38-126) 01/08/24 04:34
Total Protein 6.3 g/dl (6.3-8.2) 01/08/24 04:34
Albumin 3.7 g/dl (3.5-5.0) 01/08/24 04:34
Physical Exam
-
Gen: NAD
Abd: soft, approp ttp, incisions cdi
[2024-01-08] MEDS: TORADOL IV ×2 (08:20→14:17)
--- NOTE | 2024-01-08 11:56 | CM ---
CM following re: discharge planning.
Reviewed pt's chart, met with pt.
Pt is a 63 year old female, admitted with primary dx of POD1 s/p lap robina, with choledocholithiasis on IOC.
Pt reports she lives with in a 2SH, 2 steps to enter, has 2 supportive children. Pt described herself as independent in all areas [employer], works, drives. No DME, VN or SNF history.
PCP: Erica Bui
Pharmacy: [facility].
D/C plan: home with anticipated no needs. Spouse to transport at discharge.
CM will follow with discharge plan updates as hospitalization progresses.
[2024-01-08] MEDS: ZOFRAN 4 MG IV (17:56)
[2024-01-08] MEDS: DILAUDID 0.25 MG IV (18:05)
--- NOTE | 2024-01-08 19:35 | PTCARENOTE ---
Received patient from PACU around 1840 via stretcher in stable condition. VS stable. Call onofre in reach.
[2024-01-08] MEDS: PROTONIX 40 MG PO (19:55)
[2024-01-08] MEDS: TYLENOL 650 MG PO (20:00)
[2024-01-09] MEDS: TYLENOL PO ×2 (00:19→08:38)
[2024-01-09 01:40] VITALS: BP 124/71
[2024-01-09] MEDS: TYLENOL 650 MG PO (04:27)
[2024-01-09 05:24] LABS: Hematocrit 37.4 % (37.0-47.0); Hemoglobin 12.4 g/dL (12.0-16.0); Mean Corp Hgb Conc. 33.2 g/dL (33.0-37.0); Mean Corpuscular Hgb 29.3 pg (27.0-31.0); Mean Corpuscular Volume 88.4 fL (81.0-99.0); Mean Platelet Volume 12.2 fL (7.4-10.4); Platelet Count 207 10^3/uL (130-400); Red Blood Cell Count 4.23 10^6/uL (4.20-5.40); Red Cell Dist. Width 13.9 % (11.5-14.5); White Blood Cell Count 12.2 10^3/uL (4.8-10.8)
[2024-01-09 05:40] VITALS: BP 153/88
[2024-01-09 06:01] LABS: ALT (SGPT) 336 U/L (0-35); AST (SGOT) 428 U/L (14-36); Albumin 3.6 g/dl (3.5-5.0); Alkaline Phosphatase 82 U/L (38-126); Blood Urea Nitrogen 22 mg/dl (7-17); Calcium 9.2 mg/dl (8.4-10.2); Carbon Dioxide 24 mmol/L (22-30); Chloride 108 mmol/L (98-107); Estimated Creatinine Clearance 74 ml/min; Glucose 142 mg/dl (70-99); Potassium 4.8 mmol/L (3.5-5.1); Sodium 140 mmol/L (135-145); Total Bilirubin 1.7 mg/dl (0.2-1.3); Total Protein 6.2 g/dl (6.3-8.2); eGFR > 60.00
[2024-01-09 08:10] VITALS: BP 154/85
[2024-01-09] MEDS: PROTONIX 40 MG PO (08:37)
--- NOTE | 2024-01-09 08:42 | W.PN.GS2 ---
Today's Communication / Plan
-
`
Assessment / Plan
-
63F POD2 s/p lap robina, with choledocholithiasis on IOC
Postprocedural day #1 status post ERCP -duodenal ulcers visualized
AFVSS
Doing well postop
Plan: Stable for DC home
Protonix twice daily recommended by GI service -prescription sent
Postop outpatient follow-up with Dr. Mccauley and GI
Subjective Data
-
Date of Service: January 09, 2024
Patient seen and examined.
Doing well post cholecystectomy and ERCP
No nausea or vomiting
Ordering breakfast
Ambulating
Postop pain controlled without narcotics
Objective Data
-
Intake and Output
01/08/24 01/09/24 01/10/24
06:59 06:59 06:59
Intake Total 580 / 580 710 / 710
Balance 580 / 580 710 / 710
Intake:
Oral fluids 480 / 480 360 / 360
IV fluids (Total) 100 / 100 350 / 350
LR 350 / 350
normosol 100 / 100
Other:
Number of approximated MODERATE 2 2
amounts of urine
Number of approximated LARGE 1 2
amounts of urine
Vital Signs
Temp Pulse Resp BP Pulse Ox
97.7 F 69 17 154/85 100
01/09/24 08:10 01/09/24 08:10 01/09/24 08:10 01/09/24 08:10 01/09/24 08:10
Lab Results
01/09/24 04:33
01/09/24 04:33
Calcium 9.2 mg/dl (8.4-10.2) 01/09/24 04:33
Total Bilirubin 1.7 mg/dl (0.2-1.3) H D 01/09/24 04:33
AST 428 U/L (14-36) H 01/09/24 04:33
ALT 336 U/L (0-35) H 01/09/24 04:33
Alkaline Phosphatase 82 U/L (38-126) 01/09/24 04:33
Total Protein 6.2 g/dl (6.3-8.2) L 01/09/24 04:33
Albumin 3.6 g/dl (3.5-5.0) 01/09/24 04:33
Physical Exam
-
NAD AAOx3
ABD: Soft, nondistended, mild tenderness at incision sites
Incisions with glue dressings, no erythema, no drainage no ecchymosis
--- NOTE | 2024-01-09 10:39 | W.DS.TRANS ---
DC Summary - [employer]
-
Discharge Instructions:
Sleep Apnea Risk Intermediate
Discharge Diagnosis/Procedures Laparoscopic cholecystectomy, ERCP/upper
endoscopic ultrasound, biliary colic,
choledocholithiasis, duodenal ulcers
Diet No restrictions
Additional Diets Smaller meals initially after surgery as
abdominal bloating and distention may be common
for the first few days
Activity No strenuous activity
Additional Activity No lifting over 20 pounds for 3 to 4 weeks
postop. Routine daily activities such as
walking, standing, stairs and light activities
are all okay as tolerated
Driving Restrictions No driving for 1 to 3 days or if using narcotics
Bathing Restrictions OK to Shower
Wound Care Good surgical sites typically peels off in 2 to
3 weeks
Instructions:
Stand-Alone Forms:
Changes to Home Medications: No
Discharge Medications:
DC Medications w/original date entered in [employer]
metoprolol tartrate 25 mg tablet 25 mg PO BID Blood pressure 04/13/21
lisinopril 30 mg tablet 30 mg PO DAILY 10/25/23
acetaminophen 500 mg tablet (Tylenol Extra Strength) 1,000 mg (2 x 500 mg) PO Q6HPRN PRN mild pain #1 tab 01/09/24
pantoprazole 40 mg tablet,delayed release (Protonix) 40 mg PO BID #90 tabs 01/09/24
tramadol 50 mg tablet 25 mg (1/2 x 50 mg) PO Q6HPRN PRN severe pain/breakthrough pain #8 tabs 01/09/24
Home Medication Changes
Pending Results: No
--- NOTE | 2024-01-09 11:18 | CM ---
CM following re: discharge planning.
Reviewed pt's chart, met with pt.
Discharge order noted. Pt is aware, expressed her agreement with discharge and pt's stated her is coming to transport her home. Pt is independent with functional ability and no after care VN services indicated.
D/C plan: home no needs. to transport.
[2024-01-09 11:22] VITALS: BP 156/78
== END 2024-01-09 11:54 | disposition home or self-care (01) ==
LOC: SDS 06:16
PROVIDERS: ATTENDING PHYSICIAN Surgery; CONSULT PHYSICIAN Internal Medicine Gastroenterology
DX: K80.50 Calculus of bile duct without cholangitis or cholecystitis without obstruction (principal); K86.2 Cyst of pancreas; R74.8 Abnormal levels of other serum enzymes; R10.11 Right upper quadrant pain; K83.8 Other specified diseases of biliary tract; K26.9 Duodenal ulcer, unspecified as acute or chronic, without hemorrhage or perforation; R93.2 Abnormal findings on diagnostic imaging of liver and biliary tract
CPT/HCPCS: 43262; 43237; 43264; 88304; 74300; 76000; 80053; 85027; A4300; C1769; J1610

== ENCOUNTER 2024-01-10 16:47 | Inpatient (IN) | payer BC, SELFPAY ==
[2024-01-10] VITALS (11 sets, daily range): BP systolic 117–152; BP diastolic 59–88; BMI 35.4; BMI 35.0
--- NOTE | 2024-01-10 10:59 | ED.GENMED ---
History of Present Illness
General
Chief Complaint: Abdominal Pain
Source: patient, records and spouse
Exam Limitations: none
Time Seen by Provider: 01/10/24 10:50
Nursing documentation reviewed up to this point in time: agreed with
Travel History
Have you had any contact with someone who has COVID-19?: No
Do you have any symptoms of coronavirus? Fever > 100 degrees, chills, cough, shortness of breath, sore throat, loss of taste or smell, muscle aches, or headache?: No
History of Present Illness
History of Present Illness:
63-year-old female with a past medical history as documented presents to the emergency room with her for evaluation of abdominal pain. Patient was notably admitted to this hospital 01/06 until 01/08 (discharged yesterday) for
choledocholithiasis�she had laparoscopic cholecystectomy on 01/[address] Mccauley and then underwent ERCP with Dr. Villanueva the next day for retained stone. Patient reports that last night after discharge she began to have significant pain in the right
upper abdomen/flank and that pain has continued and worsened this morning. She says that she took Motrin, Vicodin, and even a dose of Flexeril thinking that it could be muscular pain from positioning during surgery. None of these things seem to
help and with worsening pain she came to the emergency room for assessment. She also reports that she has some pain in the right anterior shoulder. She denies any chest pain. She denies any shortness of breath. She denies any coughing. She
denies any nausea or vomiting. She was able to eat a peanut butter and jelly sandwich this morning without nausea. She denies any constipation�she had a normal bowel movement this morning. She denies any dysuria but has noticed some dark urine
over the past 24 hours. She denies any other complaints.
Past History
Past History
ED Past Medical History: HTN
ED Past Surgical History: Gynecological
Social History
Tobacco: Non-smoker
Personal:
Living: with family
Review of Systems
Review of Systems
All Other Systems: ROS reviewed and negative except as documented in HPI and ROS
Constitutional: Denies fever or chills
Respiratory: Denies cough or trouble breathing
Cardiac: Denies chest pain or palpitations
ABD/GI: Reports abdominal pain; Denies nausea, vomiting, diarrhea or constipated
: Reports flank pain and dark urine; Denies dysuria or frequency
Musculoskeletal: Reports joint pain (Right shoulder pain); Denies neck pain or back pain
Neurological: Denies headache, weakness or numbness
Phy Exam
Physical Exam
Physical Exam:
General: Awake, alert, oriented x3; appears uncomfortable
Head: Normocephalic, atraumatic
Eyes: Conjunctiva normal, sclera anicteric
Throat: Airway intact, handling secretions
Neck: Trachea midline, supple without meningismus
Lungs: Clear to auscultation bilaterally, no wheezing, rales, rhonchi
Heart: Tachycardia with regular rhythm, no murmurs, gallops, or rubs
Abd: Surgical incisions with no erythema or dehiscence; her abdomen is soft, non distended, diffusely tender maximal in the right upper quadrant and epigastric region with some voluntary guarding
Neuro: Cranial nerves grossly intact, speech fluid
Skin: no rash
Extremities: No edema in extremities, equal pulses in all extremities; she has no reproducible tenderness in the right shoulder and full range of motion without pain
Scores
Heart Failure Risk
Heart Failure Risk Score: Not Applicable
Heart Score for Chest Pain Patients
STEMI patient?: Not applicable
Withdrawal Assessment of Alcohol
Withdrawal Assessment Completed?: Not applicable
Course
Orders/Labs/Results
Orders:
Orders
01/10/24 10:51
CT Abd/pelvis W Iv Cont Urgent
Comment:
Reason For Exam: post op abd pain on right (lap robina)
Urinalysis Reflex To Culture Urgent
Date Specimen was Collected: 01/10/24
Time Specimen was Collected: 11:59
0.9% Sodium Chloride 500 ml [Nss] 500 ml IV BOLUS
HYDROmorphone [Dilaudid] 0.5 mg IV NOW STA
01/10/24 11:21
Complete Blood Count/With Diff Urgent
Comprehensive Metabolic Panel Urgent
Lipase Urgent
Abnormal Lab Results
01/10/24
11:21
MPV 11.6 H fL
(7.4-10.4)
Absolute Neuts (auto) 6.8 H 10^3/uL
(1.4-6.5)
Absolute Monos (auto) 0.9 H 10^3/uL
(0.1-0.6)
Lymphocytes % 14.6 L %
(20.5-51.1)
Monocytes % 10.0 H %
(1.7-9.3)
Chloride 108 H mmol/L
(98-107)
Glucose 126 H mg/dl
(70-99)
Total Bilirubin 3.9 H D mg/dl
(0.2-1.3)
AST 440 H U/L
(14-36)
ALT 680 H* U/L
(0-35)
01/10/24 11:21
01/10/24 11:21
Vital Signs
Initial and Last Documented VS:
Initial Vital Signs
Temp Pulse Resp BP Pulse Ox
37.0 C 104 22 152/88 93
01/10/24 10:24 01/10/24 10:24 01/10/24 10:24 01/10/24 10:24 01/10/24 10:24
Last Documented Vital Signs
Temp Pulse Resp BP Pulse Ox
37.0 C 104 22 148/74 91
01/10/24 10:24 01/10/24 10:24 01/10/24 10:24 01/10/24 11:28 01/10/24 11:45
MDM/Problems Addressed
Differential Diagnosis Includes:
Postoperative pain, retained gallstone, pancreatitis, perforated viscus, pyelonephritis
MDM/Problems Addressed:
63-year-old female presents for evaluation of pain in the right upper abdomen/flank as well as some mild right shoulder pain that has developed since discharge from the hospital yesterday status post cholecystectomy and ERCP for choledocholithiasis.
Hypertensive and tachycardic. Exam as above. Will place an IV send labs including a CBC and a CMP, lipase. Will check urinalysis. Will send for CT of the abdomen pelvis. Will treat patient's pain and provide some fluids. Will discuss with
general surgery monitor closely reassess after the above.
Acute Exacerbation and/or Progression of Chronic Illness:
Acutely hypertensive
Acute Exacerbation and/or Progression of Chronic Illness: HTN
*Radiology
Radiology exam reviewed: radiology read reviewed
*Pulse Oximetry
Patient hypoxic: no
*Critical Care Note
Total Time (30-74mins, 75-104mins- exclusive of procedures): Not Applicable
Data Reviewed
Review of Other/Old Records Reveals: Labs, Records and Operative Reports
Source: patient, records and spouse
ED Attending Note
-
Portions of this chart may have been created with voice recognition software.� Occasional wrong word or��sound alike� substitutions may have occurred due to the inherent limitations of voice recognition software.
Discharge Plan
Departure
Prescriptions:
No Action
metoprolol tartrate 25 MG tablet
25 mg PO BID
lisinopril 30 mg Tablet
30 mg PO DAILY
acetaminophen [Tylenol Extra Strength] 500 mg tablet
1,000 mg PO Q6HPRN PRN (Reason: mild pain) Qty: 1 0RF
pantoprazole [Protonix] 40 mg tablet,delayed release (DR/EC)
40 mg PO BID Qty: 90 0RF
Rx Instructions:
take twice a day for one month, then daily until advised further at GI follow up
tramadol 50 mg tablet
25 mg PO Q6HPRN PRN (Reason: severe pain/breakthrough pain) Qty: 8 0RF
Referrals:
Erica Knox MD [Family Provider] -
Interventions
Interventions:
*General Assessment Last Done: 01/10/24 10:26
ED- Fall Risk Assessment Last Done: 01/10/24 11:58
*ED COVID-19 Vaccine History Last Done: 01/10/24 10:26
XN-Vzdyom-Laubnbhpmx Assessment Last Done: 01/10/24 11:58
Discharge Date and Time
Print Language: ALGERIAN
[2024-01-10 11:26] LABS: % Basophils 0.4 % (0-2); % Eosinophils 0.4 % (0-6); % Immature Granulocytes 0.4 % (0-0.5); % Lymphocytes 14.6 % (20.5-51.1); % Neutrophils 74.2 % (42.2-75.2); Absolute Lymphocytes 1.3 10^3/uL (1.2-3.4); Absolute Monocytes 0.9 10^3/uL (0.1-0.6); Absolute Neutrophils 6.8 10^3/uL (1.4-6.5); Hematocrit 38.8 % (37.0-47.0); Hemoglobin 12.8 g/dL (12.0-16.0); Mean Corpuscular Hgb 29.6 pg (27.0-31.0); Mean Corpuscular Volume 89.6 fL (81.0-99.0); Mean Platelet Volume 11.6 fL (7.4-10.4); Nucleated Red Blood Cells % 0 %; Platelet Count 196 10^3/uL (130-400); Red Blood Cell Count 4.33 10^6/uL (4.20-5.40); Red Cell Dist. Width 14.1 % (11.5-14.5); White Blood Cell Count 9.2 10^3/uL (4.8-10.8)
[2024-01-10] MEDS: NSS 500 IV (11:26)
[2024-01-10] MEDS: DILAUDID 0.5 MG IV (11:26)
[2024-01-10 12:02] LABS: ALT (SGPT) 680 U/L (0-35); AST (SGOT) 440 U/L (14-36); Albumin 3.7 g/dl (3.5-5.0); Alkaline Phosphatase 95 U/L (38-126); Blood Urea Nitrogen 17 mg/dl (7-17); Calcium 9.3 mg/dl (8.4-10.2); Carbon Dioxide 26 mmol/L (22-30); Chloride 108 mmol/L (98-107); Estimated Creatinine Clearance 85 ml/min; Glucose 126 mg/dl (70-99); Lipase 148 U/L (23-300); Potassium 3.9 mmol/L (3.5-5.1); Sodium 140 mmol/L (135-145); Total Bilirubin 3.9 mg/dl (0.2-1.3); Total Protein 6.4 g/dl (6.3-8.2); eGFR > 60.00
[2024-01-10] MEDS: DILAUDID 1 MG IV ×3 (12:38→20:06)
[2024-01-10] MEDS: ZOSYN 50 IV (13:35)
--- NOTE | 2024-01-10 14:09 | CON.GI ---
Addendum entered and electronically signed by Hal Lomeli MD 01/10/24 15:22:
Patient seen and examined, agree with nurse practitioner note. Patient with recent cholecystectomy and CBD stone on IOC, status post EUS and ERCP with sphincterotomy and stone removal this week, though with recurrent pain described as right upper
quadrant radiating to her shoulder. On exam she does have tenderness in the right upper quadrant though without rebound, and bilirubin 3.9 with ALT and AST in the several 100s. CT scan which I personally reviewed does not show any significant
fluid collection in the gallbladder fossa, though does show a radiopacity in the CBD, consistent with CBD stone. At this point she has no signs of cholangitis though is having some persistent pain. She did eat peanut butter and jelly today.
Without signs of cholangitis and having general anesthesia twice this week so far, will hold on ERCP today, plan tomorrow under MAC. I discussed with patient and her at length.
Original Note:
Consultation
-
Date/Time Consultation Requested: 01/10/24 1345
Date/Time Consultation Performed: 01/10/24 1410
Requesting Provider: Javier Barragan MD
Performing Provider: WILD Anaya, Varun Lomeli MD
Reason for Consultation: abdominal pain, choledocholithasis
Medical History
Chief Complaint / HPI
Chief Complaint: abdominal pain
History of Present Illness:
Pt is a 63yo presents with hx melanoma, pancreatic cyst follow with Dr. Galvan at [facility], gallstones, HTN, hypercholesterolemia with recent mandible cyst with drainage several months ago. She has had chronic biliary colic for years with recent
worsening symptoms. She was in ER in October with elevated LFT's and considered EUS but held with jaw issues. She had later follow up with surgery and had robina 01/06 with IOC with 3-4mm filling defect distal CBD suggesting stone. She had follow
up ERCP 01/[address] Villanueva with duodenal ulcers, papilla normal, filling defect with stone and choledocholithiasis with removal with balloon extraction and sphincterotomy. On 01/08 she was discharged with bili 1.7, AST 428, alt 336 alk phos 82. She
has never felt better and now with worsening RUQ pain with right shoulder pain. She also admits to increased pain with deep breath. On return kayla 3.9, AST 440, ALT 680, alk phos [address] concerning for recurrent choledocholithiasis with CBD
8mm, mild ductal dilation. She currently admits to 9/10 pain on admission now 6/10 with dark urine. But denies dysphagia, GERD, nausea, vomiting, diarrhea, constipation or bleeding.
Past Medical History
Past Medical History: Cancer (melanoma), HTN, Hypercholesterolemia and Other (pancreatic cyst )
Past Surgical History: Cholecystectomy and Other (breast reduction, right oopherctomy, D&C, excision left mandibular cyst.)
Social History
Tobacco: Non-Smoker
Alcohol: None
Drug: None
Personal:
Living: With Family
Employment: Retired
Family History
Family History: Other (grandmother with GB problems)
Allergies / Home Medications
Allergy/AdvReac Type Severity Reaction Status Date / Time
moxifloxacin [From Avelox] Allergy Itching Verified 01/10/24 10:29
oxycodone Allergy Itching/Upper Verified 01/10/24 10:29
chest
itching
�Medication �Instructions �Recorded
metoprolol tartrate 25 mg tablet 25 mg PO BID Blood pressure 04/13/21
lisinopril 30 mg tablet 30 mg PO DAILY 10/25/23
acetaminophen 500 mg tablet 1,000 mg (2 x 500 mg) PO Q6HPRN 01/09/24
(Tylenol Extra Strength) PRN mild pain #1 tab
pantoprazole 40 mg tablet,delayed 40 mg PO BID #90 tabs 01/09/24
release (Protonix)
tramadol 50 mg tablet 25 mg (1/2 x 50 mg) PO Q6HPRN PRN 01/09/24
severe pain/breakthrough pain #8
tabs
cyclobenzaprine 5 mg tablet 5 mg PO TIDPRN PRN spasms 01/10/24
Review of Systems
-
History Source: Patient
Constitutional: Reports Weight Loss ( with recent jaw surgery)
EENT: Reports No Symptoms
Respiratory: Reports No Symptoms
Cardiac: Reports No Symptoms
Abdomen/GI: Reports Abdominal Pain (into right shoulder )
: Reports Dark Urine (slightly dark )
Musculoskeletal: Reports No Symptoms
Skin: Reports No Symptoms
Neurological: Reports No Symptoms
Endocrine: Reports No Symptoms
Hematologic/Lymphatic: Reports No Symptoms
Vital Signs
Temp Pulse Resp BP Pulse Ox
98.6 F 104 22 117/61 91
01/10/24 10:24 01/10/24 10:24 01/10/24 10:24 01/10/24 13:00 01/10/24 13:00
Physical Exam
Exam
General: Well Developed, Well Nourished and No Apparent Distress
HEENT: Normocephalic and Other (jaundice )
Respiratory: Clear
Cardiac: Other (tachy )
GI: Soft, Non Distended, Normal Bowel Sounds, Tender (right upper quadrant with shoulder pain ) and Other (mild guarding right sided with deeper palpation, pain increased with deep breath )
Musculoskeletal: No Clubbing and No Cyanosis
Skin: Warm and Dry
Neuro: Awake, Alert and AO x 3
Psych: Calm
Results
WBC 9.2 10^3/uL (4.8-10.8) 01/10/24 11:21
Hgb 12.8 g/dL (12.0-16.0) 01/10/24 11:21
Hct 38.8 % (37.0-47.0) 01/10/24 11:21
MCV 89.6 fL (81.0-99.0) 01/10/24 11:21
Plt Count 196 10^3/uL (130-400) 01/10/24 11:21
Absolute Neuts (auto) 6.8 10^3/uL (1.4-6.5) H 01/10/24 11:21
Sodium 140 mmol/L (135-145) 01/10/24 11:21
Potassium 3.9 mmol/L (3.5-5.1) 01/10/24 11:21
Chloride 108 mmol/L (98-107) H 01/10/24 11:21
Carbon Dioxide 26 mmol/L (22-30) 01/10/24 11:21
BUN 17 mg/dl (7-17) 01/10/24 11:21
Creatinine 0.8 mg/dL (0.6-1.0) 01/10/24 11:21
Calcium 9.3 mg/dl (8.4-10.2) 01/10/24 11:21
Total Bilirubin 3.9 mg/dl (0.2-1.3) H D 01/10/24 11:21
AST 440 U/L (14-36) H 01/10/24 11:21
ALT 680 U/L (0-35) H* 01/10/24 11:21
Alkaline Phosphatase 95 U/L (38-126) 01/10/24 11:21
Lipase 148 U/L (23-300) 01/10/24 11:21
Diagnostic imaging:
01/10/24 CT Abd/pelvis W Iv Cont
1. Postoperative changes, status post laparoscopic cholecystectomy.
2. Choledocholithiasis. Mildly enlarged common bile duct at 8 mm. Mild intrahepatic ductal dilatation. Mild pneumobilia. Consistent with previous postoperative change.
3. Borderline hepatomegaly with mild steatosis.
4. Tiny anterior body pancreatic cyst less well seen, patient is followed at an outside institution with regular screening pancreatic MRI exams.
5. Small amount of free fluid in the pelvis.
01/10/24 MR Abdomen W/o & W Contrast
Cholelithiasis as well as probable small stones within the cystic duct without overt MR evidence for acute cholecystitis. If there is high clinical concern, consider further evaluation with dedicated HIDA scan.
Subcentimeter pancreatic body cystic lesions without suspicious features, likely a pseudocyst or side branch intraductal papillary mucinous neoplasm. Recommend follow-up MRI/MRCP abdomen without and with gadolinium contrast in one year per ACR
criteria.
Assessment / Plan
-
Pt is a 63yo presents with hx melanoma, pancreatic cyst follow with Dr. Galvan at [facility], gallstones, HTN, hypercholesterolemia with recent mandible cyst with drainage several months ago. She has had chronic biliary colic for years with recent
worsening symptoms. She was in ER in October with elevated LFT's and considered EUS but held with jaw issues. She had later follow up with surgery and had robina 01/06 with IOC with 3-4mm filling defect distal CBD suggesting stone. She had follow
up ERCP 01/[address] Villanueva with duodenal ulcers, papilla normal, filling defect with stone and choledocholithiasis with removal with balloon extraction and sphincterotomy. On 01/08 she was discharged with bili 1.7, AST 428, alt 336 alk phos 82. She
has never felt better and now with worsening RUQ pain with right shoulder pain. She also admits to increased pain with deep breath. On return kayla 3.9, AST 440, ALT 680, alk phos [address] concerning for recurrent choledocholithiasis with CBD
8mm, mild ductal dilation. She currently admits to 9/10 pain on admission now 6/10 with dark urine. But denies dysphagia, GERD, nausea, vomiting, diarrhea, constipation or bleeding.
-right sided abdominal pain into shoulder with mild guarding
-recurrent rise of LFT's
-choledocholithiasis
-recent wt loss with mandible surgery several months ago
-recent duodenal ulcers on EGD (prior NSAID use with jaw surgery)
other medical problems:
-melanoma
-hx panc cyst
-HTN
-hypercholesterolemia
PLAN:
Etiology of abdominal pain with concern for retained stones in CBD on Ct
plan for ERCP in AM as patient ate at 9am today
will review imaging with Dr. Lomeli
ok for clear diet tonight then NPO in AM
IV abx
pain control per hospitalist
cont to follow OP with panc cyst clinic at [facility]
family updated at bedside
-
-
Thank you for consultation and allowing me to participate in the patient's care. Please call the honing machine set up operator tool GI physician during the after hours with any questions or concerns.
[2024-01-10 15:28] LABS: Urine Albumin Negative (Neg - Trace); Urine Bilirubin Negative (Negative); Urine Character Clear (Clear); Urine Color Yellow; Urine Glucose Negative (Negative); Urine Ketone Negative (Negative); Urine Leukocyte Negative (Negative); Urine Nitrite Negative (Negative); Urine Occult Blood Negative (Negative); Urine Specific Gravity 1.005 (<1.030); Urine Urobilinogen Negative (Neg - 1+)
[2024-01-10] MEDS: NSS 1000 IV (17:00)
[2024-01-10] MEDS: DILAUDID 0.25 MG IV (17:54)
--- NOTE | 2024-01-10 17:56 | HPS.HSE ---
Addendum entered and electronically signed by Edmar Urias MD 01/10/24 22:45:
Attending Addendum-
I performed a history and physical exam of the patient and discussed his management with the resident. I reviewed the resident's note and agree with the documented findings and plan of care Patient presents to ED with severe RUQ abd pain rad to
right shoulder. Had lap robina and ERCP this week. ERCP with successful stone extraction/sphincterotomy. Initially felt well after DC. Patient had repeat CT in ED and found to have CBD stone. Full 12 point ROS reviewed and negative except as
documented Exam- vitals reviewed in chart GEN-mild distress due to pain heart RRR lungs clear abd TTP RUQ no rebound tenderness lap robina incision CDI diminished BS Ext- no edema Plan:
# Acute RUQ Abd pain/Recurrent Choledocholithiasis
- recent Lap robina 01/06 ERCP 01/07
- GI on board
- ERCP in am for stone extraction
- NPO p MN start IVF
- pain control IV Dilaudid --allergic to oxy but can tolerate Dilaudid
# Duodenal Ulcers-
- cont PPI
# Acute Transaminitis
- secondary to CBD stone
- cont to trend
# HTN-
- cont lisinopril Metoprolol
DVT proph- scds
Time spent coordinating care, review of plan of care with resident, review of records, med rec, consults, notes, labs, rads, d/w nursing - 75 mins
Original Note:
Family Physician
-
Family Physician: Erica Knox MD
Chief Complaint
-
Abdominal pain 04/28, s/p cholecystectomy, ERCP.
History of Present Illness
Patient states that after 7:30 PM yesterday night she started developing abdominal pain, predominantly in her right upper quadrant that radiated into her right shoulder blade and into her right flank started at about 7/10 and worsened after eating
her breakfast-(peanut peanut butter jelly sandwich) in the a.m. today when her pain worsened to about 9/10. Her pain is sharp and shooting in nature, and is not associated with nausea and vomiting, fevers, chills. No much change in her appetite
s/p surgery. Her last bowel movement was yesterday morning in the a.m. in hospital before discharge. She reports to have bloating, belching and is actively passing flatus. off note patient had elective cholecystectomy on 01/06, and was found to
have a common bile duct stone during the procedure. Had an ERCP and started improving after the day of ERCP with bowel movements. Patient was discharged home yesterday in the afternoon. She denies chest pain, shortness of breath, dizziness,
lightheadedness.
Medical History
Past Medical History
Past Medical History: Reports Other
Additional Past Medical History:
Hypertension, melanoma s/p excision on right thigh, ovarian cyst (20 years ago), hyperlipidemia, impaired fasting glucose tolerance ([id number])
Past Surgical History: Reports Other
Additional Past Surgical History:
Gynecological.
Social History
Tobacco: Non-smoker
Alcohol: Occasional
Drug: None
Personal:
Living: With Family
Employment: Other (Former nurse.)
Family History
Family History: Not pertinent
Allergies / Home Medications
Allergies reflects when Allergies were last updated in [facility].
Home Medications with original date entered in [facility]
Allergy/Medication List:
Allergies
Allergy/AdvReac Type Severity Reaction Status Date / Time
moxifloxacin [From Avelox] Allergy Itching Verified 01/10/24 10:29
oxycodone Allergy Itching/Upper Verified 01/10/24 10:29
chest
itching
Home Medications
metoprolol tartrate 25 mg tablet 25 mg PO BID Blood pressure 04/13/21
lisinopril 30 mg tablet 30 mg PO DAILY 10/25/23
acetaminophen 500 mg tablet (Tylenol Extra Strength) 1,000 mg (2 x 500 mg) PO Q6HPRN PRN mild pain #1 tab 01/09/24
pantoprazole 40 mg tablet,delayed release (Protonix) 40 mg PO BID #90 tabs 01/09/24
tramadol 50 mg tablet 25 mg (1/2 x 50 mg) PO Q6HPRN PRN severe pain/breakthrough pain #8 tabs 01/09/24
cyclobenzaprine 5 mg tablet 5 mg PO TIDPRN PRN spasms 01/10/24
Review of Systems
-
History Source: Patient
A 12 point ROS was completed and negative except as noted: Yes
Abdomen/GI: Reports Abdominal Pain (Right upper abdomen. Radiating to her shoulder blade.)
Psych: Reports Anxiety (In pain.)
Physical Exam
Vital Signs
Vital Signs
Temp Pulse Resp BP Pulse Ox
98.1 F 99 20 143/82 93
01/10/24 17:19 01/10/24 17:19 01/10/24 17:19 01/10/24 17:19 01/10/24 17:19
Physical Exam
General: Well Developed, Well Nourished and No Apparent Distress
HEENT: NormoCephalic, Anicteric and PERRLA
Respiratory: Clear (No wheezes, rales, rhonchi.)
Cardiac: S1/S2, Regular Rhythm and Other (Meds, rubs, gallops.)
GI: Other (On inspection surgical wound sites look intact. No bruising or ecchymosis noted at the surgical sites. Abdomen mildly distended. On palpation-there is tenderness in the right upper quadrant with mild guarding but no rigidity. No
hepatosplenomegaly appreciated. Tympanic to percussion. Bowel robert)
Genito-urinary: Deferred by me
Musculoskeletal: No Clubbing, No Cyanosis and No Edema
Skin: Warm and Dry
Neuro: AO x 3 and No Motor Deficits
Psych: Calm
Laboratory Results
-
01/10/24 11:21
01/10/24 11:21
Laboratory Results
Total Bilirubin 3.9 mg/dl (0.2-1.3) H D 01/10/24 11:21
AST 440 U/L (14-36) H 01/10/24 11:21
ALT 680 U/L (0-35) H* 01/10/24 11:21
Alkaline Phosphatase 95 U/L (38-126) 01/10/24 11:21
Lipase 148 U/L (23-300) 01/10/24 11:21
Impression/Plan
-
IMPRESSION:
63-year-old female s/p cholecystectomy cholecystectomy and CBD stone on IOC, s/p EUS and ERCP with sphincterotomy and stone removal presents to the emergency room for evaluation of recurrent right upper quadrant abdominal pain x 12 hours.
PLAN:
Right upper quadrant pain-
s/p cholecystectomy, s/p ERCP-successful biliary sphincterotomy and stone removal.
Suspected choledocholithiasis on CAT scan in the emergency room.
CT abdomen findings-
IMPRESSION:
1. Postoperative changes, status post laparoscopic cholecystectomy.
2. Choledocholithiasis. Mildly enlarged common bile duct at 8 mm. Mild intrahepatic ductal dilatation. Mild pneumobilia. Consistent with previous postoperative change.
3. Borderline hepatomegaly with mild steatosis.
4. Tiny anterior body pancreatic cyst less well seen, patient is followed at an outside institution with regular screening pancreatic MRI exams.
5. Small amount of free fluid in the pelvis.
Pain control with IV Dilaudid. IV fluid bolus given.
Continue IV fluids maintenance, IV Dilaudid for pain.
Liquids for now, n.p.o. past midnight-okay to take blood pressure medications with a sip of water.
Touch base with GI-plan is to do an ERCP tomorrow.
History of duodenal ulcers
IV Protonix once a day.
Hypertension-
Continue home meds lisinopril, metoprolol.
As needed ondansetron for nausea.
DVT prophylaxis-
SCD.
CODE STATUS-full code
Power of shoulder boner- Manny.
[2024-01-10] MEDS: LOPRESSOR 25 MG PO (21:47)
[2024-01-10] MEDS: TYLENOL 1000 MG PO (21:57)
[2024-01-11] MEDS: DILAUDID 1 MG IV ×2 (00:33→07:50)
[2024-01-11] MEDS: NSS 1000 IV ×2 (03:26→20:07)
[2024-01-11] MEDS: DILAUDID 0.5 MG IV ×3 (03:28→20:08)
[2024-01-11 07:26] VITALS: BP 136/79
[2024-01-11 07:40] LABS: Hematocrit 37.4 % (37.0-47.0); Hemoglobin 12.3 g/dL (12.0-16.0); Mean Corp Hgb Conc. 32.9 g/dL (33.0-37.0); Mean Corpuscular Hgb 29.4 pg (27.0-31.0); Mean Corpuscular Volume 89.5 fL (81.0-99.0); Mean Platelet Volume 11.6 fL (7.4-10.4); Platelet Count 192 10^3/uL (130-400); Red Blood Cell Count 4.18 10^6/uL (4.20-5.40); Red Cell Dist. Width 14.5 % (11.5-14.5); White Blood Cell Count 11.3 10^3/uL (4.8-10.8)
[2024-01-11] MEDS: LOPRESSOR PO (07:55)
[2024-01-11] MEDS: ZESTRIL PO (07:55)
[2024-01-11 08:43] LABS: ALT (SGPT) 628 U/L (0-35); AST (SGOT) 253 U/L (14-36); Albumin 3.6 g/dl (3.5-5.0); Alkaline Phosphatase 141 U/L (38-126); Blood Urea Nitrogen 12 mg/dl (7-17); Calcium 9.1 mg/dl (8.4-10.2); Carbon Dioxide 23 mmol/L (22-30); Chloride 108 mmol/L (98-107); Estimated Creatinine Clearance 112 ml/min; Glucose 107 mg/dl (70-99); Lipase 56 U/L (23-300); Potassium 4.2 mmol/L (3.5-5.1); Sodium 139 mmol/L (135-145); Total Bilirubin 5.3 mg/dl (0.2-1.3); Total Protein 6.2 g/dl (6.3-8.2); eGFR > 60.00
[2024-01-11] MEDS: ZOSYN 50 IV ×3 (10:08→23:23)
--- NOTE | 2024-01-11 11:54 | W.PN.HOSP.TC ---
Today's Communication/Plan
-
monitor vitals
see plan
pain control
ERCP today
start abx
check bcx
Assessment / Plan
Assessment / Plan
General: Well Developed, Well Nourished and No Apparent Distress
HEENT: NormoCephalic, Anicteric and PERRLA
Respiratory: Clear (No wheezes, rales, rhonchi.)
Cardiac: S1/S2, Regular Rhythm
GI: Other (On inspection surgical wound sites look intact. No bruising or ecchymosis noted at the surgical sites)
Musculoskeletal: No Clubbing, No Cyanosis and No Edema
Skin: Warm and Dry
Neuro: AO x 3 and No Motor Deficits
Psych: Calm
Acute RUQ Abd pain/Recurrent Choledocholithiasis
- recent Lap robina 01/06 ERCP 01/07
GI following
ERCP 01/10
Now has leukocytosis along with tachycardia. Will start antibiotics and check blood culture
Continue with pain control, IVF
# Duodenal Ulcers-
- cont PPI
# Acute Transaminitis
- secondary to CBD stone
- cont to trend
# HTN-
- cont lisinopril Metoprolol
DVT proph- scds
I spent a total of 51 minutes with the patient or on the floor. More than 50% of this time involved counseling and coordination of care.
Anticipated Discharge: 24 - 48 hours
Subjective/Interval History
-
Date of Service: January 11, 2024
Still has abdominal pain
Objective Data
-
Labs:
Laboratory Results
01/11/24
07:19
WBC 11.3 H
Hgb 12.3
Hct 37.4
Plt Count 192
Sodium 139
Potassium 4.2
Chloride 108 H
Carbon Dioxide 23
BUN 12
Creatinine 0.6
Glucose 107 H
Calcium 9.1
Total Bilirubin 5.3 H
AST 253 H
ALT 628 H*
Alkaline Phosphatase 141 H
Vital Signs:
Vital Signs
Temp Pulse Resp BP Pulse Ox
99 F 90 16 136/79 91
01/11/24 07:26 01/11/24 07:26 01/11/24 07:26 01/11/24 07:26 01/11/24 07:26
I&O
01/10/24 01/11/24 01/12/24
06:59 06:59 06:59
Intake Total 1000 / 1000
Balance 1000 / 1000
[2024-01-11 12:30] VITALS: BP 154/80
[2024-01-11] MEDS: ZESTRIL 30 MG PO (14:57)
[2024-01-11 15:45] VITALS: BP 138/78
--- NOTE | 2024-01-11 18:08 | PTCARENOTE ---
Pt to GI lab this morning for ERCP and gall stone removal. Procedure went well. Pt has relief after. Tolerating clear diet.
[2024-01-11 20:05] VITALS: BP 156/89
[2024-01-11] MEDS: LOPRESSOR 25 MG PO (20:07)
[2024-01-11] MEDS: PROTONIX 40 MG PO (20:15)
[2024-01-11] MEDS: SENOKOT-S 1 TABLET PO (20:15)
[2024-01-11 23:15] VITALS: BP 148/81
[2024-01-12] MEDS: DILAUDID 0.5 MG IV ×2 (00:10→10:48)
[2024-01-12] MEDS: DILAUDID 1 MG IV (04:40)
[2024-01-12] MEDS: ZOSYN 50 IV ×4 (04:49→21:35)
[2024-01-12] MEDS: NSS 1000 IV (04:49)
[2024-01-12 06:14] LABS: % Basophils 0.2 % (0-2); % Eosinophils 0.3 % (0-6); % Immature Granulocytes 0.4 % (0-0.5); % Lymphocytes 10.8 % (20.5-51.1); % Monocytes 9.7 % (1.7-9.3); % Neutrophils 78.6 % (42.2-75.2); Absolute Lymphocytes 1.2 10^3/uL (1.2-3.4); Absolute Neutrophils 8.4 10^3/uL (1.4-6.5); Hematocrit 33.6 % (37.0-47.0); Hemoglobin 11.4 g/dL (12.0-16.0); Mean Corp Hgb Conc. 33.9 g/dL (33.0-37.0); Mean Corpuscular Hgb 29.8 pg (27.0-31.0); Mean Corpuscular Volume 87.7 fL (81.0-99.0); Mean Platelet Volume 11.9 fL (7.4-10.4); Nucleated Red Blood Cells % 0 %; Platelet Count 190 10^3/uL (130-400); Red Blood Cell Count 3.83 10^6/uL (4.20-5.40); Red Cell Dist. Width 14.2 % (11.5-14.5); White Blood Cell Count 10.7 10^3/uL (4.8-10.8)
[2024-01-12 06:34] LABS: ALT (SGPT) 372 U/L (0-35); AST (SGOT) 92 U/L (14-36); Alkaline Phosphatase 130 U/L (38-126); Blood Urea Nitrogen 14 mg/dl (7-17); Carbon Dioxide 24 mmol/L (22-30); Chloride 107 mmol/L (98-107); Estimated Creatinine Clearance 67 ml/min; Glucose 130 mg/dl (70-99); Potassium 4.7 mmol/L (3.5-5.1); Sodium 140 mmol/L (135-145); Total Bilirubin 2.7 mg/dl (0.2-1.3); Total Protein 5.6 g/dl (6.3-8.2); eGFR > 60.00
[2024-01-12 07:30] VITALS: BP 166/93
[2024-01-12] MEDS: TYLENOL 1000 MG PO ×2 (08:34→17:31)
[2024-01-12] MEDS: ZESTRIL 30 MG PO (08:35)
[2024-01-12] MEDS: LOPRESSOR 25 MG PO ×2 (08:35→21:36)
[2024-01-12] MEDS: PROTONIX 40 MG PO ×2 (08:36→21:36)
--- NOTE | 2024-01-12 11:04 | W.PN.GI.CBS2 ---
Today's Communication / Plan
-
Adv to low fat diet
Transition to oral abx tomorrow to complete 5 day course
GI will sign off please call for questions
Assessment / Plan
-
Pt is a 63yo presents with hx melanoma, pancreatic cyst follow with Dr. Galvan at [place], gallstones, HTN, hypercholesterolemia with recent mandible cyst with drainage several months ago. She has had chronic biliary colic for years with recent
worsening symptoms. She was in ER in October with elevated LFT's and considered EUS but held with jaw issues. She had later follow up with surgery and had robina 01/06 with IOC with 3-4mm filling defect distal CBD suggesting stone. She had follow
up ERCP 01/[address] Villanueva with duodenal ulcers, papilla normal, filling defect with stone and choledocholithiasis with removal with balloon extraction and sphincterotomy. On 01/08 she was discharged with bili 1.7, AST 428, alt 336 alk phos 82. She
has never felt better and now with worsening RUQ pain with right shoulder pain. She also admits to increased pain with deep breath. On return kayla 3.9, AST 440, ALT 680, alk phos [address] concerning for recurrent choledocholithiasis with CBD
8mm, mild ductal dilation. She currently admits to 9/10 pain on admission now 6/10 with dark urine. But denies dysphagia, GERD, nausea, vomiting, diarrhea, constipation or bleeding.
Impression
-choledocholithiasis
ERCP 01/10 Prior biliary sphincterotomy appeared open.
- The major papilla appeared edematous.
- The cystic duct and entire biliary tree were dilated
with low insertion cystic duct.
- Choledocholithiasis was found, not completely clear
if in cystic duct remnant or CBD. Complete removal was
accomplished by balloon extraction.
- The biliary tree was swept.
-recent wt loss with mandible surgery several months ago
-recent duodenal ulcers on EGD (prior NSAID use with jaw surgery)
-melanoma
-hx panc cyst
-HTN
-hypercholesterolemia
Plan
- Still slight discomfort post ERCP but much improved
- LFTs downtrending and leukocytosis resolved
- Adv to low fat diet
- BC negative
- Ok to complete total 5 day course of abx, anticipate transition to oral (augmentin) tomorrow
Dr Lomeli updated. At this juncture GI will sign off please call for questions
Subjective
Subjective
Date of Service: January 12, 2024
Still some slight RUQ abd and R shoulder pain. However much improved compared to day of admission
Objective
Data Reviewed
Laboratory Data:
Laboratory Results
01/12/24 05:39
01/12/24 05:39
Laboratory Results
Total Bilirubin 2.7 mg/dl (0.2-1.3) H 01/12/24 05:39
AST 92 U/L (14-36) H 01/12/24 05:39
ALT 372 U/L (0-35) H 01/12/24 05:39
Alkaline Phosphatase 130 U/L (38-126) H 01/12/24 05:39
Lipase 56 U/L (23-300) 01/11/24 07:19
Vital Signs and I&O:
Vital Signs
Temp Pulse Resp BP Pulse Ox
98.4 F 86 18 166/93 94
01/12/24 07:30 01/12/24 07:30 01/12/24 07:30 01/12/24 07:30 01/12/24 07:30
I&O
01/11/24 01/12/24 01/13/24
06:59 06:59 06:59
Intake Total 1000 / 1000 1020 / 2270 1250 / 1250
Balance 1000 / 1000 1020 / 2270 1250 / 1250
Physical Exam
Physical Exam
GEN: No acute distress, conversant, pleasant
HEENT: anicteric, extraocular movements intact, clear oropharynx without exudates
GI: soft, obese non-distended, RUQ mildly tender to palpation, normal active bowel sounds, no hepatosplenomegaly
EXT: warm, well perfused, no edema bilaterally
NEURO: AAOx3, non-focal
--- NOTE | 2024-01-12 11:36 | W.PN.HOSP.TC ---
Today's Communication/Plan
-
Monitor vital signs and see plan
Continue to trend LFTs
Lidocaine patch, incentive spirometer
Trial of low-fat diet
Add MiraLAX
Continue with antibiotics for now
Hopeful DC tomorrow if continues to improve
Assessment / Plan
Assessment / Plan
General: Well Developed, Well Nourished and No Apparent Distress
HEENT: NormoCephalic, Anicteric and PERRLA
Respiratory: Clear (No wheezes, rales, rhonchi.)
Cardiac: S1/S2, Regular Rhythm
GI: Other (On inspection surgical wound sites look intact. No bruising or ecchymosis noted at the surgical sites)
Musculoskeletal: No Clubbing, No Cyanosis and No Edema
Skin: Warm and Dry
Neuro: AO x 3 and No Motor Deficits
Psych: Calm
Acute RUQ Abd pain/Recurrent Choledocholithiasis
- recent Lap robina 01/06
GI following
ERCP 01/10 Choledocholithiasis was found, not completely clear
if in cystic duct remnant or CBD. Complete removal was
accomplished by balloon extraction.
Now had leukocytosis along with tachycardia. BCX NGTD. cw abx
Continue with pain control, IVF
trial of low fat diet
# Duodenal Ulcers-
- cont PPI
# Acute Transaminitis
- secondary to gallstones
- cont to trend
# HTN-
- cont lisinopril Metoprolol
DVT proph- scds
Anticipated Discharge: Within 24 hours
Subjective/Interval History
-
Date of Service: January 12, 2024
still has discomfort
Objective Data
-
Labs:
Laboratory Results
01/12/24
05:39
WBC 10.7
Hgb 11.4 L
Hct 33.6 L
Plt Count 190
Sodium 140
Potassium 4.7
Chloride 107
Carbon Dioxide 24
BUN 14
Creatinine 1.0
Glucose 130 H
Calcium 9.0
Total Bilirubin 2.7 H
AST 92 H
ALT 372 H
Alkaline Phosphatase 130 H
Vital Signs:
Vital Signs
Temp Pulse Resp BP Pulse Ox
98.4 F 86 18 166/93 94
01/12/24 07:30 01/12/24 07:30 01/12/24 07:30 01/12/24 07:30 01/12/24 07:30
I&O
01/11/24 01/12/24 01/13/24
06:59 06:59 06:59
Intake Total 1000 / 1000 1020 / 2270 1250 / 1250
Balance 1000 / 1000 1020 / 2270 1250 / 1250
[2024-01-12] MEDS: LIDOCAINE 4% PATCH 1 PATCH TOPICAL (12:40)
[2024-01-12 15:06] VITALS: BP 138/60
[2024-01-12 15:57] VITALS: BMI 36.5
--- NOTE | 2024-01-12 17:01 | CM ---
Patient with Dx Acute RUQ Abd pain/Recurrent Choledocholithiasis, recent Lap robina 01/06. Receiving IV Dilaudid, IV Abx.
Met with patient who resides with her in a 2 story home with 2 DAMI.
The patient is independent in ADLs and ambulation.
She is active and drives.
No DME, prior VN or SNF.
PCP - Erica Knox
Pharmacy - [facility]
Offered VN and patient declined.
No CM d/c needs identified.
Plan home.
[2024-01-12] MEDS: LASIX 20 MG IV (18:07)
[2024-01-12] MEDS: NSS IV (18:41)
--- NOTE | 2024-01-12 20:00 | PTCARENOTE ---
Pt requested doctor at bedside. Pt informed this RN that she is concerned 'something is leaking' in her abd and complained of abd swelling and LE swelling. VSS. Pt anxious. TELEPHONE INTERCEPTOR OPERATOR at bedside.
[2024-01-12 20:02] VITALS: BP 146/67
[2024-01-12] MEDS: FLUSH (NSS) 2 FLUSH IV (21:37)
[2024-01-12 22:38] VITALS: BP 148/76
[2024-01-13 01:20] VITALS: BP 129/66
--- NOTE | 2024-01-13 01:32 | W.PN.UPDATE ---
Update Note
Progress Note Update
At 0800 RN requesting GALVANIZER to see the patient, as patient needs clarification on her disease process. Patient seen and evaluated. Patient reports she has gained a lot of pounds and feels her legs and belly are puffy. Reports mild pain at the surgical
site. Vitals 98.6- 98 - 16- 146/67 96% RA. no edema noted, lungs clear, +BS 4 quadrant, soft, mild tender at belly. Patient seems anxious, explained the lab results, and imaging. Assured patient is okay at present and that nurses will be monitoring
her vitals till she gets discharged per unit guidelines.
At 0100 GALVANIZER was called to see the patient again. Patient seen and evaluated, anxious, stable VS, Lungs clear, +BS 4 Quad, soft, mild tender RUQ, not guarding, no hematoma, reported mild nausea, states she feels 'something is wrong with me' Denies
shortness of breath, chest pain, offered Simethicone, pain medication, Antiemetics, patient refused at this time. Also offered to have imaging of the abdomen, patient refused at this time. stated ' I don't want to put in any medication to my body,
and don't want further tests done on me' Reported she is worried that once she goes home, things will get worse
Assured patient of the assessment. Copies of the recent CT scan and chest Xray given to he patient.
--- NOTE | 2024-01-13 02:07 | PTCARENOTE ---
Pt complained of nausea, gas pains, and abd pain. Abd assessed, soft. Pt complained of tenderness. Pt requested COMPOSITION FLOOR SETTER at bedside. COMPOSITION FLOOR SETTER at bedside, nausea medication, gas medication and pain medication offered. Pt stated, 'I do not want anything'.
COMPOSITION FLOOR SETTER informed this RN if patient wants abx XR to inform her. Pt refused abd XR at this time.
[2024-01-13] MEDS: ZOSYN 50 IV ×4 (04:38→21:44)
[2024-01-13] MEDS: TYLENOL 1000 MG PO (05:23)
[2024-01-13 06:00] VITALS: BMI 36.4
[2024-01-13 07:00] VITALS: BP 136/63
[2024-01-13 08:14] LABS: % Basophils 0.3 % (0-2); % Eosinophils 3.4 % (0-6); % Immature Granulocytes 0.6 % (0-0.5); % Lymphocytes 22.3 % (20.5-51.1); % Monocytes 9.9 % (1.7-9.3); % Neutrophils 63.5 % (42.2-75.2); Absolute Eosinophils 0.3 10^3/uL (0-0.7); Absolute Immature Granulocytes 0.1 10^3/uL (0-0.05); Absolute Lymphocytes 1.9 10^3/uL (1.2-3.4); Absolute Monocytes 0.9 10^3/uL (0.1-0.6); Absolute Neutrophils 5.5 10^3/uL (1.4-6.5); Hematocrit 34.8 % (37.0-47.0); Hemoglobin 11.4 g/dL (12.0-16.0); Mean Corp Hgb Conc. 32.8 g/dL (33.0-37.0); Mean Corpuscular Hgb 29.2 pg (27.0-31.0); Mean Corpuscular Volume 89.2 fL (81.0-99.0); Mean Platelet Volume 11.8 fL (7.4-10.4); Nucleated Red Blood Cells % 0 %; Platelet Count 206 10^3/uL (130-400); Red Cell Dist. Width 14.3 % (11.5-14.5); White Blood Cell Count 8.7 10^3/uL (4.8-10.8)
[2024-01-13 08:38] LABS: ALT (SGPT) 285 U/L (0-35); AST (SGOT) 44 U/L (14-36); Albumin 3.1 g/dl (3.5-5.0); Alkaline Phosphatase 111 U/L (38-126); Blood Urea Nitrogen 16 mg/dl (7-17); Calcium 8.9 mg/dl (8.4-10.2); Carbon Dioxide 25 mmol/L (22-30); Chloride 108 mmol/L (98-107); Estimated Creatinine Clearance 63 ml/min; Glucose 97 mg/dl (70-99); Sodium 141 mmol/L (135-145); Total Bilirubin 1.9 mg/dl (0.2-1.3); Total Protein 5.7 g/dl (6.3-8.2); eGFR 57.17
[2024-01-13] MEDS: LOPRESSOR 25 MG PO ×2 (08:42→20:42)
[2024-01-13] MEDS: PROTONIX 40 MG PO (08:42)
[2024-01-13] MEDS: ZESTRIL 30 MG PO (08:42)
[2024-01-13] MEDS: LIDOCAINE 4% PATCH 1 PATCH TOPICAL (08:44)
[2024-01-13 08:56] VITALS: BMI 35.3
[2024-01-13] MEDS: FLUSH (NSS) 2 FLUSH IV ×2 (10:23→21:48)
--- NOTE | 2024-01-13 10:49 | W.PN.HOSP.TC ---
Today's Communication/Plan
-
monitor vitals
see plan
monitor LFT's
cw IS
pain control
monitor renal function
Assessment / Plan
Assessment / Plan
General: Well Developed, Well Nourished and No Apparent Distress
HEENT: NormoCephalic, Anicteric and PERRLA
Respiratory: Clear (No wheezes, rales, rhonchi.)
Cardiac: S1/S2, Regular Rhythm
GI: Other (On inspection surgical wound sites look intact. No bruising or ecchymosis noted at the surgical sites)
Musculoskeletal: No Edema
Neuro: AO x 3 and No Motor Deficits
Psych: Calm
Acute RUQ Abd pain/Recurrent Choledocholithiasis
- recent Lap robina 01/06
GI following
ERCP 01/10 Choledocholithiasis was found, not completely clear
if in cystic duct remnant or CBD. Complete removal was
accomplished by balloon extraction.
Now had leukocytosis along with tachycardia. BCX NGTD. cw abx
Continue with pain control, IVF
trial of low fat diet
Acute kidney injury
Likely secondary to recent contrast use
Ua few days ago was without UTI
Hold lisinopril
Sob 2/2 atelectasis
CXR noted
cw IS
pain control
Duodenal Ulcers-
- cont PPI
Acute Transaminitis
- secondary to gallstones
- cont to trend; improving
Anxiety
Monitor
# HTN-
- cont Metoprolol
Hold lisinopril secondary to AUGUSTINE
Add hydralazine as needed
DVT proph- scds,lovenox
Anticipated Discharge: Within 24 hours
Subjective/Interval History
-
Date of Service: January 13, 2024
Does have some abdominal pain
Objective Data
-
Labs:
Laboratory Results
01/13/24
07:28
WBC 8.7
Hgb 11.4 L
Hct 34.8 L
Plt Count 206
Sodium 141
Potassium 4.0
Chloride 108 H
Carbon Dioxide 25
BUN 16
Creatinine 1.1 H
Glucose 97
Calcium 8.9
Total Bilirubin 1.9 H
AST 44 H
ALT 285 H
Alkaline Phosphatase 111
Vital Signs:
Vital Signs
Temp Pulse Resp BP Pulse Ox
98.3 F 73 16 136/63 97
01/13/24 07:00 01/13/24 07:00 01/13/24 07:00 01/13/24 07:00 01/13/24 07:00
I&O
01/12/24 01/13/24 01/14/24
06:59 06:59 06:59
Intake Total 1020 / 2270 2620 / 2620
Balance 1020 / 2270 2620 / 2620
[2024-01-13 14:53] VITALS: BP 132/82
[2024-01-13] MEDS: PROTONIX PO (20:38)
[2024-01-13 23:35] VITALS: BP 129/73
[2024-01-14] MEDS: FLUSH (NSS) 2 FLUSH IV (04:28)
[2024-01-14] MEDS: ZOSYN 50 IV (04:28)
[2024-01-14 06:00] VITALS: BMI 35.2
[2024-01-14 06:56] LABS: % Basophils 0.4 % (0-2); % Eosinophils 3.1 % (0-6); % Immature Granulocytes 0.4 % (0-0.5); % Lymphocytes 22.3 % (20.5-51.1); % Monocytes 8.4 % (1.7-9.3); % Neutrophils 65.4 % (42.2-75.2); Absolute Eosinophils 0.2 10^3/uL (0-0.7); Absolute Lymphocytes 1.6 10^3/uL (1.2-3.4); Absolute Monocytes 0.6 10^3/uL (0.1-0.6); Absolute Neutrophils 4.8 10^3/uL (1.4-6.5); Mean Corp Hgb Conc. 34.4 g/dL (33.0-37.0); Mean Corpuscular Hgb 29.5 pg (27.0-31.0); Mean Corpuscular Volume 85.8 fL (81.0-99.0); Mean Platelet Volume 11.4 fL (7.4-10.4); Nucleated Red Blood Cells % 0 %; Platelet Count 198 10^3/uL (130-400); Red Blood Cell Count 3.73 10^6/uL (4.20-5.40); Red Cell Dist. Width 14.5 % (11.5-14.5); White Blood Cell Count 7.4 10^3/uL (4.8-10.8)
[2024-01-14 07:15] VITALS: BP 152/84
[2024-01-14 07:31] LABS: ALT (SGPT) 220 U/L (0-35); AST (SGOT) 46 U/L (14-36); Alkaline Phosphatase 101 U/L (38-126); Blood Urea Nitrogen 15 mg/dl (7-17); Calcium 8.8 mg/dl (8.4-10.2); Carbon Dioxide 27 mmol/L (22-30); Chloride 107 mmol/L (98-107); Estimated Creatinine Clearance 75 ml/min; Glucose 105 mg/dl (70-99); Potassium 3.8 mmol/L (3.5-5.1); Sodium 140 mmol/L (135-145); Total Bilirubin 1.4 mg/dl (0.2-1.3); Total Protein 5.5 g/dl (6.3-8.2); eGFR > 60.00
[2024-01-14] MEDS: PROTONIX PO (07:50)
[2024-01-14] MEDS: LOPRESSOR 25 MG PO (07:52)
[2024-01-14] MEDS: LIDOCAINE 4% PATCH 1 PATCH TOPICAL (07:52)
[2024-01-14] MEDS: AUGMENTIN 875 MG/125 MG 1 TABLET PO (09:31)
--- NOTE | 2024-01-14 09:50 | W.PN.HOSP.TC ---
Today's Communication/Plan
-
Monitor vital signs
see plan
LFTs downtrending
CMP next week with primary care provider
Restart lisinopril
Discharge today
Time of discharge 37 minutes
Assessment / Plan
Assessment / Plan
General: Well Developed, Well Nourished and No Apparent Distress
HEENT: NormoCephalic, Anicteric and PERRLA
Respiratory: Clear (No wheezes, rales, rhonchi.)
Cardiac: S1/S2, Regular Rhythm
GI: Other (On inspection surgical wound sites look intact. No bruising or ecchymosis noted at the surgical sites)
Musculoskeletal: No Edema
Neuro: AO x 3 and No Motor Deficits
Psych: Calm
Acute RUQ Abd pain/Recurrent Choledocholithiasis
- recent Lap robina 01/06
GI following
ERCP 01/10 Choledocholithiasis was found, not completely clear
if in cystic duct remnant or CBD. Complete removal was
accomplished by balloon extraction.
Now had leukocytosis along with tachycardia. BCX NGTD. change abx to PO augmentin to complete course
Continue with pain control, IVF
tolerating low fat diet
Acute kidney injury
Likely secondary to recent contrast use
Ua few days ago was without UTI
resolved; restart lisinopril
Sob 2/2 atelectasis
CXR noted
cw IS
pain control
Duodenal Ulcers-
- cont PPI
Acute Transaminitis
- secondary to gallstones
- cont to trend; improving
Anxiety
Monitor
# HTN-
- cont Metoprolol
Hold lisinopril secondary to AUGUSTINE
Add hydralazine as needed
DVT proph- scds,lovenox
Anticipated Discharge: Today
Subjective/Interval History
-
Date of Service: January 14, 2024
denies pain
Objective Data
-
Labs:
Laboratory Results
01/14/24
06:31
WBC 7.4
Hgb 11.0 L
Hct 32.0 L
Plt Count 198
Sodium 140
Potassium 3.8
Chloride 107
Carbon Dioxide 27
BUN 15
Creatinine 0.9
Glucose 105 H
Calcium 8.8
Total Bilirubin 1.4 H
AST 46 H
ALT 220 H
Alkaline Phosphatase 101
Vital Signs:
Vital Signs
Temp Pulse Resp BP Pulse Ox
98.2 F 75 16 152/84 98
01/14/24 07:15 01/14/24 07:15 01/14/24 07:15 01/14/24 07:15 01/14/24 07:15
I&O
01/13/24 01/14/24 01/15/24
06:59 06:59 06:59
Intake Total 2620 / 2620 920 / 920
Balance 2620 / 2620 920 / 920
--- NOTE | 2024-01-14 09:52 | W.DCSUMMARY ---
Discharge Summary
Discharge Data
Date of Admission: 01/10/24
Date of Discharge: 01/14/24
-
Pending Results: No
Hospital Course
63-year-old female with past medical history of recent cholecystectomy, duodenal ulcer, anxiety, hypertension came to the hospital with acute right upper quadrant pain consistent with recurrent cholelithiasis. Patient also had leukocytosis along
with tachycardia so was started on antibiotics. Blood culture continue to be negative. Patient was initially on IV antibiotics were later transitioned to oral Augmentin prior to discharge. Patient went for ERCP on 01/10 which showed
choledocholithiasis and complete removal was accomplished by balloon extraction. Patient LFTs continue to improve post ERCP. On this hospitalization she also had acute kidney injury which was likely thought was secondary to recent contrast use.
Her renal function continue to improve prior to discharge. She also had some shortness of breath which was attributed to atelectasis. Once patient symptoms continue to improve and she was able to tolerate low-fat diet, she was then discharged home
with instructions to follow-up with all her physicians outpatient.
Discharge Plan
-
Patient Disposition: Home (Routine Discharge)
Discharge Diagnosis/Procedures: Recurrent Choledocholithiasis
Acute kidney injury
Atelectasis
Acute Transaminitis
Diet: Low Fat
Activity: As tolerated and No strenuous activity
Driving Restrictions: As prior to admission
Bathing Restrictions: None
Activity Restrictions/Additional Instructions:
No lifting over 20 pounds for 3 to 4 weeks postop. Routine daily activities such as
walking, standing, stairs and light activities are all okay as tolerated.
Referrals:
Maya Leblanc MD [Active] -
Porfirio Culver MD [Active] -
Erica Knox MD [Family Provider] - in less than 1 week
Prescriptions:
New
polyethylene glycol 3350 [HealthyLax] 17 gram Powder In Packet
17 g PO DAILY Qty: 0 0RF
lidocaine 4 % Adhesive Patch,Medicated
1 patch topical DAILY Qty: 30 0RF
amoxicillin-pot clavulanate 875-125 mg Tablet
1 tab PO Q12 Qty: 9 0RF
Saccharomyces boulardii [Daily Probiotic (S. boulardii)] 250 mg capsule
250 mg PO DAILY Qty: 5 0RF
Continued
metoprolol tartrate 25 MG tablet
25 mg PO BID
lisinopril 30 mg Tablet
30 mg PO DAILY
acetaminophen [Tylenol Extra Strength] 500 mg tablet
1,000 mg PO Q6HPRN PRN (Reason: mild pain) Qty: 1 0RF
pantoprazole [Protonix] 40 mg tablet,delayed release (DR/EC)
40 mg PO BID Qty: 90 0RF
Rx Instructions:
take twice a day for one month, then daily until advised further at GI follow up
tramadol 50 mg tablet
25 mg PO Q6HPRN PRN (Reason: severe pain/breakthrough pain) Qty: 8 0RF
cyclobenzaprine 5 mg tablet
5 mg PO TIDPRN PRN (Reason: spasms)
Discharge Orders:
Discharge Patient (As Directed); Ordered 01/14/24
Ordered By: Bebeto Birch
Discharge Date and Time
Discharge Date/Time: 01/14/24 11:02
Print Language: CYPRIOT
[2024-01-14 10:55] VITALS: BP 136/73
== END 2024-01-14 11:02 | disposition home or self-care (01) | DRG 445 ==
LOC: 3 WEST ACU 16:47
PROVIDERS: Student in an Organized Health Care Education/Training Program; ADMITTING PHYSICIAN Family Medicine; ATTENDING PHYSICIAN Internal Medicine; EMERGENCY PHYSICIAN Emergency Medicine; FAMILY PHYSICIAN Family Medicine; OTHER PHYSICIAN Internal Medicine Gastroenterology
PROC: BF101ZZ Fluoroscopy of Bile Ducts using Low Osmolar Contrast (ICD-10-PCS; 2024-01-11)
PROC: 0FC98ZZ Extirpation of Matter from Common Bile Duct, Via Natural or Artificial Opening Endoscopic (ICD-10-PCS; 2024-01-11)
DX: K80.50 Calculus of bile duct without cholangitis or cholecystitis without obstruction (principal); J98.11 Atelectasis; K86.2 Cyst of pancreas; N17.9 Acute kidney failure, unspecified; I10 Essential (primary) hypertension; D72.829 Elevated white blood cell count, unspecified; R16.0 Hepatomegaly, not elsewhere classified; K26.9 Duodenal ulcer, unspecified as acute or chronic, without hemorrhage or perforation; R60.9 Edema, unspecified; F41.9 Anxiety disorder, unspecified; R74.01 Elevation of levels of liver transaminase levels; E78.00 Pure hypercholesterolemia, unspecified; Z90.49 Acquired absence of other specified parts of digestive tract; Z85.820 Personal history of malignant melanoma of skin; Z88.5 Allergy status to narcotic agent; Z88.8 Allergy status to other drugs, medicaments and biological substances
CPT/HCPCS: 71046; 74177; 74330; 76000; 80053; 81003; 83690; 85025; 85027; 87040; 96361; 96365; 96375; 96376; 99285; C1769; Q9967